=== PATIENT | male | born 1965 | race Caucasian/White ===

== ENCOUNTER → 2018-02-14 | Outpatient (CLI) | payer BC ==
[~2018-02-14] MED LIST: IOPAMIDOL (ISOVUE 370) 100 ML BTL IV ONE
== END ==
LOC: FIMAGING 11:21
PROVIDERS: ATTEND Internal Medicine Hematology & Oncology
DX: C08.9 Malignant neoplasm of major salivary gland, unspecified (principal); C76.0 Malignant neoplasm of head, face and neck; Z45.2 Encounter for adjustment and management of vascular access device
CPT/HCPCS: J1642; Q9967

== ENCOUNTER 2018-04-03 06:28 | Inpatient (IN) | payer BC ==
[2018-04-03] MEDS ORDERED: NS 1,000 ML IV ONE (06:52)
[2018-04-03 07:17] LABS: PLATELET COUNT 70 10^3/uL (150-400)
--- NOTE | 2018-04-03 07:19 | EDPHY ---
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 It has become more frequent and violent since onset and last night he was unable to sleep. He's having some increased dyspnea from baseline. He denies fever or new pain anywhere. He was admitted here 5 weeks ago with neutropenic fever and treated with antibiotics and filgrastim. REVIEW OF SYSTEMS: A comprehensive 10 system review of systems is otherwise negative aside from elements mentioned in the history of present illness. PMH: Metastatic adenoid cystic carcinoma - chemotherapy; 7 head and neck surgeries for cancer Prior medical records reviewed including admission 02/24/18 for neutropenic fever. SOCIAL HISTORY: at bedside. Lives in [place]. Nonsmoker. PHYSICAL EXAM: General:Patient is alert, in no acute distress. SpO2 89% on room air, improved to 99% on 2LPM O2. Head: Resected right facial anatomy. ENT:Eyes are normal to inspection. ENT inspection normal. Neck: Normal inspection. Full range of motion. Respiratory:No respiratory distress. Right-sided inspiratory and expiratory wheezing. Cardiovascular: Regular rate and rhythm. Strong peripheral pulses. Normal cap refill. Abdomen:The abdomen is nontender to palpation. There are no peritoneal signs. Back: Normal to inspection. No tenderness to palpation. Skin: Normal color. No rash. Warm and dry. Extremities: Normal appearance. Full range of motion. Neuro: Oriented x3. Normal motor function. Normal sensory function. ED Course: This is a 52 y/o male with metastatic cystic adenoid carcinoma currently on chemotherapy who presents with a 2-day history of a worsening cough. He was hypoxemic at 89% on room air and has inspiratory and expiratory wheezing on the right side to auscultation. Concern for respiratory infection vs. malignancy progression. Plan for IV, sepsis labs, chest x-ray. 1L IV NS ordered. Labs show patient is anemic with a Hct of 21.8 - 10 points lower than last lab draw 10 days ago. This suggests possible bleeding vs anaplastic anemia. Chest x-ray: no infiltrate, metastatic disease stable. Flu swab is negative. [id number]: Consulted with Dr. Trimble, oncology. He agrees with plan for admission and their service will consult. Spoke with hospitalist service. Dr. Brady accepts admission. Plan for transfusion with 1 unit PRBCs. Chest CTA: no PE, no significant change, narrowing of right bronchus similar to prior imaging. - Data Points Imaging Results: Imaging Impressions Chest X-Ray 04/03/18 06:45 Impression: 1. No pneumonia, edema or effusion. 2. Stable metastatic pulmonary disease. Imaging: I viewed and interpreted images myself Laboratory Results: Laboratory Results 04/03/18 07:00 04/03/18 07:00 04/03/18 04/03/18 04/03/18 07:35 07:00 07:00 WBC RBC Hgb Hct MCV MCH MCHC RDW Plt Count MPV Neut % (Auto) Lymph % (Auto) [place] % (Auto) Eos % (Auto) Baso % (Auto) Nucleat RBC Rel Count Absolute Neuts (auto) Absolute Lymphs (auto) Absolute Monos (auto) Absolute Eos (auto) Absolute Basos (auto) Absolute Nucleated RBC Immature Gran % Seg Neutrophils % Band Neutrophils % Lymphocytes % Monocytes % Eosinophils % Basophils % Metamyelocytes % Myelocytes % Promyelocytes % Blast Cells % Immature Gran # Absolute Seg Neuts Absolute Band Neuts Absolute Lymphocytes Absolute Monocytes Absolute Eosinophils Absolute Basophils Absolute Metamyelocyte Absolute Myelocytes Absolute Promyelocytes Absolute Plasma Cells Nucleated RBCs Absolute Blast Cells Plasma Cells % Toxic Granulation Dohle Bodies Platelet Estimate Microcytic Cells VBG Lactic Acid 2.0 mmol/L mmol/L (0.7-2.1) Sodium 135 mEq/L mEq/L (135-145) Potassium 3.9 mEq/L mEq/L (3.5-5.2) Chloride 100 mEq/L mEq/L (97-110) Carbon Dioxide 26 mEq/l mEq/l (22-31) Anion Gap 9 mEq/L mEq/L (6-14) BUN 24 mg/dL H mg/dL (7-23) Creatinine 1.2 mg/dL mg/dL (0.7-1.3) Estimated GFR > 60 Glucose 132 mg/dL H mg/dL (70-100) Calcium 9.1 mg/dL mg/dL (8.5-10.4) Nasal Influenza A PCR Nasal Influenza B PCR Patient ABO/Rh A POSITIVE Antibody Screen NEGATIVE Crossmatch IS Only See Detail 04/03/18 04/03/18 07:00 06:55 WBC 1.99 10^3/uL L 10^3/uL (3.80-9.50) RBC 2.53 10^6/uL L 10^6/uL (4.40-6.38) Hgb 7.3 g/dL L g/dL (13.7-17.5) Hct 21.8 % L % (40.0-51.0) MCV 86.2 fL fL (81.5-99.8) MCH 28.9 pg pg (27.9-34.1) MCHC 33.5 g/dL g/dL (32.4-36.7) RDW 15.4 % H % (11.5-15.2) Plt Count 70 10^3/uL L 10^3/uL (150-400) MPV 11.6 fL fL (8.7-11.7) Neut % (Auto) Not Reported Lymph % (Auto) Not Reported [place] % (Auto) Not Reported Eos % (Auto) Not Reported Baso % (Auto) Not Reported Nucleat RBC Rel Count Not Reported Absolute Neuts (auto) Not Reported Absolute Lymphs (auto) Not Reported Absolute Monos (auto) Not Reported Absolute Eos (auto) Not Reported Absolute Basos (auto) Not Reported Absolute Nucleated RBC Not Reported Immature Gran % Not Reported Seg Neutrophils % 55.1 % % Band Neutrophils % 2.0 % % Lymphocytes % 24.5 % % Monocytes % 15.3 % % Eosinophils % 0.0 % % Basophils % 3.1 % % Metamyelocytes % 0.0 % % Myelocytes % 0.0 % % Promyelocytes % 0.0 % % Blast Cells % 0.0 % % Immature Gran # Not Reported Absolute Seg Neuts 1.10 10^3/uL L 10^3/uL (1.70-6.50) Absolute Band Neuts 0.04 10^3/uL 10^3/uL (0.00-0.70) Absolute Lymphocytes 0.49 10^3/uL L 10^3/uL (1.00-3.00) Absolute Monocytes 0.30 10^3/uL 10^3/uL (0.30-0.80) Absolute Eosinophils 0.00 10^3/uL L 10^3/uL (0.03-0.40) Absolute Basophils 0.06 10^3/uL 10^3/uL (0.02-0.10) Absolute Metamyelocyte 0.00 10^3/mL 10^3/mL (0.00-0.00) Absolute Myelocytes 0.00 10^3/mL 10^3/mL (0.00-0.00) Absolute Promyelocytes 0.00 10^3/uL 10^3/uL (0.00-0.00) Absolute Plasma Cells 0.00 10^3/uL 10^3/uL (0.00-0.00) Nucleated RBCs 3.1 /100 WBC H /100 WBC (0-0) Absolute Blast Cells 0.00 10^3/uL 10^3/uL (0.00-0.00) Plasma Cells % 0.0 % % Toxic Granulation PRESENT H Dohle Bodies PRESENT H Platelet Estimate DECREASED L (ADEQ) Microcytic Cells 2+ H VBG Lactic Acid Sodium Potassium Chloride Carbon Dioxide Anion Gap BUN Creatinine Estimated GFR Glucose Calcium Nasal Influenza A PCR NEGATIVE FOR FLU A (NEGATIVE) Nasal Influenza B PCR NEGATIVE FOR FLU B (NEGATIVE) Patient ABO/Rh Antibody Screen Crossmatch IS Only Medications Given: Discontinued Medications Sodium Chloride (Ns) 1,000 mls @ 0 mls/hr IV EDNOW ONE; Wide Open PRN Reason: Protocol Stop: 04/03/18 06:53 Last Admin: 04/03/18 07:05 Dose: 1,000 mls General Initial Vital Signs: Initial Vital Signs Temperature (C) 36.5 C 04/03/18 06:32 Heart Rate 83 04/03/18 06:32 Respiratory Rate 18 04/03/18 06:32 Blood Pressure 89/57 L 04/03/18 06:32 O2 Sat (%) 89 L 04/03/18 06:32 O2 Delivery Mode Oxymizer O2 (L/minute) 1.5 Allergies/Adverse Reactions: No Known Allergies Allergy (Verified 04/03/18 06:35) Home Medications: Medication Instructions Recorded Gabapentin [Gabapentin 800 mg] 800 mg PO TID 03/04/16 Levothyroxine [Synthroid 75 mcg 75 mcg PO DAILY06 02/24/18 (*)] Losartan Potassium [Cozaar 25 mg 25 mg PO BID 02/24/18 (*)] Ondansetron HCl [Zofran] 8 mg PO Q8 PRN 02/24/18 Pravastatin Sodium [Pravachol] 10 mg PO HS 02/24/18 Sertraline HCl [Zoloft 50mg (*)] 50 mg PO HS 02/24/18 Sildenafil Citrate 25 - 100 mg PO DAILY PRN 02/24/18 clonazePAM [Clonazepam] 0.5 mg PO BID 02/24/18 metFORMIN HCL [Glucophage 500 mg 500 mg PO DAILY@12 02/24/18 (*)] oxyCODONE HCL [Oxycodone HCl] 5 - 10 mg PO Q4 PRN 02/24/18 Albuterol Sulfate [Proair Hfa] 8.5 gm IH Q4-6PRN PRN #1 [id number].[id number] 02/26/18 OLANZapine [ZyPREXA 2.5 mg (*)] 2.5 mg PO DAILY 04/03/18 Departure - Departure Disposition: [facility] Inpatient Acute Clinical Impression: Hypoxemia, Cough, metastatic cystic adenoid carcinoma Anemia Qualifiers: Anemia type: unspecified type Qualified Code(s): D64.9 - Anemia, unspecified Condition: Fair Report Scribed for: Joshua Barrett Report Scribed by: Kimber Adorno Date of Report: 04/03/18 Time of Report: 07:08 Physician Review and Approval Statement: Portions of this note were transcribed by an ED scribe. I personally performed the history, physical exam, and medical decision making; and confirm the accuracy of the information in the transcribed note.
[2018-04-03] MEDS ORDERED: IOPAMIDOL (ISOVUE 370) 100 ML BTL IV ONE (08:38)
[2018-04-03] MEDS ORDERED: IPRATROPIUM/ALBUTEROL 3 ML DEYVIAL IH PRN (09:24)
[2018-04-03] MEDS ORDERED: ONDANSETRON 4 MG/2 ML VIAL IVP PRN (09:24)
[2018-04-03] MEDS ORDERED: ONDANSETRON DISINTEGRATING 4 MG TAB PO PRN (09:24)
[2018-04-03] MEDS ORDERED: ACETAMINOPHEN 325 MG TAB PO PRN (09:24)
[2018-04-03] MEDS ORDERED: NON-FORMULARY NEW DRUG (Ondansetron Hcl [Zofran] 8 MG) PO PRN (10:22)
[2018-04-03] MEDS ORDERED: oxyCODONE IR 5 MG TAB PO PRN (10:27)
[2018-04-03] MEDS ORDERED: ALBUTEROL 60 PUFFS/8 GM MDI IH PRN (10:30)
[2018-04-03] MEDS ORDERED: OLANZapine 2.5 MG TAB PO SCH (10:30)
[2018-04-03] MEDS ORDERED: LEVOTHYROXINE 75 MCG TAB PO SCH (10:30)
[2018-04-03] MEDS: guaiFENesin/CODEINE PHOS 10 ML UDCUP PO PRN ×2 (10:32→21:04)
[2018-04-03] MEDS: GABAPENTIN 400 MG CAP PO SCH ×3 (10:32→21:03)
[2018-04-03] MEDS: clonazePAM 0.5 MG TAB PO SCH ×2 (10:32→21:03)
[2018-04-03] MEDS ORDERED: OLANZapine 2.5 MG TAB PO PRN (11:43)
[2018-04-03] MEDS: CEFEPIME HCL 2 GM in NS 100 ML IV SCH ×2 (13:26→21:05)
--- NOTE | 2018-04-03 13:50 | PDGENHP ---
History and Physical - Chief Complaint Cough, SOB - History of Present Illness Yariel Mcdonald is a 52 yo M with a PMHx of Metastatic adenoid cystic carcinoma with most recent chemo 2 weeks ago who presents to [facility] for 2 day hx of cough and SOB. He reports that he started having non-productive cough 2 days ago. He denies associated symptoms of sore throat, chest pain, fever/chills, diarrhea /constipation, n/v, rash, dysuria, headache. He reports cough has been getting worse despite taking Robitussin at home. Of note, he was admitted for neutropenic fever, was dx with bacterial bronchitis at that time and was given course of Levaquin. He follows with Dr. Buck as his primary oncologist. History Information - Allergies/Home Medication List Allergies/Adverse Reactions: No Known Allergies Allergy (Verified 04/03/18 06:35) Home Medications: Gabapentin [Gabapentin 800 mg] 800 mg PO TID 03/04/16 [Last Taken Unknown] Levothyroxine [Synthroid 75 mcg (*)] 75 mcg PO DAILY06 02/24/18 [Last Taken Unknown] Losartan Potassium [Cozaar 25 mg (*)] 25 mg PO BID 02/24/18 [Last Taken Unknown] Ondansetron HCl [Zofran] 8 mg PO Q8 PRN 02/24/18 [Last Taken Unknown] Pravastatin Sodium [Pravachol] 10 mg PO HS 02/24/18 [Last Taken Unknown] Sertraline HCl [Zoloft 50mg (*)] 50 mg PO HS 02/24/18 [Last Taken Unknown] Sildenafil Citrate 25 - 100 mg PO DAILY PRN 02/24/18 [Last Taken Unknown] clonazePAM [Clonazepam] 0.5 mg PO BID 02/24/18 [Last Taken Unknown] metFORMIN HCL [Glucophage 500 mg (*)] 500 mg PO DAILY@12 02/24/18 [Last Taken Unknown] oxyCODONE HCL [Oxycodone HCl] 5 - 10 mg PO Q4 PRN 02/24/18 [Last Taken Unknown] OLANZapine [ZyPREXA 2.5 mg (*)] 2.5 mg PO DAILY 04/03/18 [Last Taken Unknown] I have personally reviewed and updated: family history, medical history, social history, surgical history - Past Medical History Additional medical history: Metastatic adenoid cystic carcinoma - Surgical History Additional surgical history: Multiple facial surgeries for cancer - Family History Positive for: non-pertinent - Social History Smoking Status: Never smoked Review of Systems Review of Systems: ROS: 10pt was reviewed & negative except for what was stated in HPI & below Physical Exam Physical Exam: Temp Pulse Resp BP Pulse Ox 36.9 C 106 H 16 156/88 H 91 L 04/03/18 13:10 04/03/18 13:10 04/03/18 13:10 04/03/18 13:10 04/03/18 13:10 O2 (L/minute) 2 Constitutional: chronically ill appearing Eyes: PERRL Ears, Nose, Mouth, Throat: moist mucous membranes, other (S/p facial surgeries with large portion removed, c/d/i) Cardiovascular: regular rate and rhythym Respiratory: no respiratory distress Gastrointestinal: normoactive bowel sounds Skin: warm Musculoskeletal: full muscle strength Neurologic: AAOx3 Psychiatric: interacting appropriately Lab Data & Imaging Review 04/03/18 07:00 04/03/18 07:00 WBC 1.99 10^3/uL (3.80-9.50) L 04/03/18 07:00 RBC 2.53 10^6/uL (4.40-6.38) L 04/03/18 07:00 Hgb 7.3 g/dL (13.7-17.5) L 04/03/18 07:00 Hct 21.8 % (40.0-51.0) L 04/03/18 07:00 MCV 86.2 fL (81.5-99.8) 04/03/18 07:00 MCH 28.9 pg (27.9-34.1) 04/03/18 07:00 MCHC 33.5 g/dL (32.4-36.7) 04/03/18 07:00 RDW 15.4 % (11.5-15.2) H 04/03/18 07:00 Plt Count 70 10^3/uL (150-400) L 04/03/18 07:00 MPV 11.6 fL (8.7-11.7) 04/03/18 07:00 Neut % (Auto) Not Reported 04/03/18 07:00 Lymph % (Auto) Not Reported 04/03/18 07:00 [place] % (Auto) Not Reported 04/03/18 07:00 Eos % (Auto) Not Reported 04/03/18 07:00 Baso % (Auto) Not Reported 04/03/18 07:00 Nucleat RBC Rel Count Not Reported 04/03/18 07:00 Absolute Neuts (auto) Not Reported 04/03/18 07:00 Absolute Lymphs (auto) Not Reported 04/03/18 07:00 Absolute Monos (auto) Not Reported 04/03/18 07:00 Absolute Eos (auto) Not Reported 04/03/18 07:00 Absolute Basos (auto) Not Reported 04/03/18 07:00 Absolute Nucleated RBC Not Reported 04/03/18 07:00 Immature Gran % Not Reported 04/03/18 07:00 Seg Neutrophils % 55.1 % 04/03/18 07:00 Band Neutrophils % 2.0 % 04/03/18 07:00 Lymphocytes % 24.5 % 04/03/18 07:00 Monocytes % 15.3 % 04/03/18 07:00 Eosinophils % 0.0 % 04/03/18 07:00 Basophils % 3.1 % 04/03/18 07:00 Metamyelocytes % 0.0 % 04/03/18 07:00 Myelocytes % 0.0 % 04/03/18 07:00 Promyelocytes % 0.0 % 04/03/18 07:00 Blast Cells % 0.0 % 04/03/18 07:00 Immature Gran # Not Reported 04/03/18 07:00 Absolute Seg Neuts 1.10 10^3/uL (1.70-6.50) L 04/03/18 07:00 Absolute Band Neuts 0.04 10^3/uL (0.00-0.70) 04/03/18 07:00 Absolute Lymphocytes 0.49 10^3/uL (1.00-3.00) L 04/03/18 07:00 Absolute Monocytes 0.30 10^3/uL (0.30-0.80) 04/03/18 07:00 Absolute Eosinophils 0.00 10^3/uL (0.03-0.40) L 04/03/18 07:00 Absolute Basophils 0.06 10^3/uL (0.02-0.10) 04/03/18 07:00 Absolute Metamyelocyte 0.00 10^3/mL (0.00-0.00) 04/03/18 07:00 Absolute Myelocytes 0.00 10^3/mL (0.00-0.00) 04/03/18 07:00 Absolute Promyelocytes 0.00 10^3/uL (0.00-0.00) 04/03/18 07:00 Absolute Plasma Cells 0.00 10^3/uL (0.00-0.00) 04/03/18 07:00 Nucleated RBCs 3.1 /100 WBC (0-0) H 04/03/18 07:00 Absolute Blast Cells 0.00 10^3/uL (0.00-0.00) 04/03/18 07:00 Plasma Cells % 0.0 % 04/03/18 07:00 Toxic Granulation PRESENT H 04/03/18 07:00 Dohle Bodies PRESENT H 04/03/18 07:00 Platelet Estimate DECREASED (ADEQ) L 04/03/18 07:00 Microcytic Cells 2+ H 04/03/18 07:00 VBG Lactic Acid 2.0 mmol/L (0.7-2.1) 04/03/18 07:00 Sodium 135 mEq/L (135-145) 04/03/18 07:00 Potassium 3.9 mEq/L (3.5-5.2) 04/03/18 07:00 Chloride 100 mEq/L (97-110) 04/03/18 07:00 Carbon Dioxide 26 mEq/l (22-31) 04/03/18 07:00 Anion Gap 9 mEq/L (6-14) 04/03/18 07:00 BUN 24 mg/dL (7-23) H 04/03/18 07:00 Creatinine 1.2 mg/dL (0.7-1.3) 04/03/18 07:00 Estimated GFR > 60 04/03/18 07:00 Glucose 132 mg/dL (70-100) H 04/03/18 07:00 Calcium 9.1 mg/dL (8.5-10.4) 04/03/18 07:00 Nasal Influenza A PCR NEGATIVE FOR FLU A (NEGATIVE) 04/03/18 06:55 Nasal Influenza B PCR NEGATIVE FOR FLU B (NEGATIVE) 04/03/18 06:55 Patient ABO/Rh A POSITIVE 04/03/18 07:35 Antibody Screen NEGATIVE 04/03/18 07:35 Crossmatch IS Only See Detail 04/03/18 07:35 Assessment & Plan Assessment: Cough (Acute) - 2 days of non-productive cough, no associated f/c - Afebrile on admission with neutropenia, ANC 1,084 - CXR showing stable metastatic pulmonary disease, no acute etiology - CTA performed on admission shows no evidence of PE, stable metastatic disease , severe narrowing of R main bronchus and origin RUL due to R hilar mass, unchanged, RLL segmental mucous plugging peripheral to R hilar mass is worse, RUL postobstructive atelectasis and consolidation is unchanged, no new airspace consolidation or edema - Flu negative on admission - Respiratory PCR negative on admission - No clear etiology for cough at this time, possible post obstructive PNA on CTA as above - Discussed with patient and about conservative management vs. initiating empiric abx in setting of neutropenia, started on Levaquin 750 mg qd, switched to Cefepime per Oncology - Blood cultures x2 collected, f/u results Anemia/Neutropenia/Pancytopenia (Acute) - Hgb 7.3 on admission, decreased from baseline, WBC as above, Platelets 70 - In setting of recent chemotherapy - 2 units PRBCs ordered in ED - Will continue to monitor, transfuse H/H <7/20 Metastatic Adenoid Cystic Carcinoma - Follows with Dr. Buck, reprts last chemo session 2 weeks ago - Oncology, Dr. Trimble, consulted by ED, will f/u recommendations FEN: IVF, Regular DVT PPx; Lovenox Code: DNR Dispo: Admit to Observation
--- NOTE | 2018-04-03 13:58 | GCON ---
ONCOLOGY CONSULTATION NOTE DATE OF CONSULTATION: 04/03/2018 HISTORY OF PRESENT ILLNESS: The patient is a 52-year-old gentleman followed by my partner, Dr. Letha Buck. He has a very complicated medical history. The patient was originally diagnosed with an a denoid cystic carcinoma in 2009. He underwent a total parotidectomy at that time. He received posto p radiation for positive margins. He, unfortunately, developed a local recurrence in the fall. The patient underwent a complex resection. He had positive margins. He was re-irradiated. He h as, unfortunately, since developed metastatic disease. He was treated briefly on an [facility] [place] with Nivolumab. More recently, he has been receiving palliative cisplatin, doxorubicin, and cycl ophosphamide. He received his 4th cycle of this regimen on March 24. He reports approximately 24 hours of increasing dyspnea and a nonproductive cough. He denies fevers or chills. He reports increasing weakness. He denies abdominal pain, nausea, vomiting, or diarrhea. He was brought to the emergency department today. A CT angiogram of the chest done in the ER revea led no evidence of pulmonary embolism. His known metastatic pulmonary nodules are stable. He appear s to have a postobstructive process in the right lower lobe. He has been started on levofloxacin. Dimitri maya was noted to have chemotherapy-induced anemia and has received 1 unit of packed red cells. Overall , he feels somewhat better. When seen, his is at the bedside. PAST MEDICAL HISTORY: Essentially unremarkable other than his diagnosis of head and neck carcinoma. SOCIAL HISTORY: The patient lives locally. He is to [facility]. He has 2 grown children. 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 REVIEW OF SYSTEMS: As outlined above. Remainder of 10-point review of systems otherwise negative. ALLERGIES: Patient has no known drug allergies. PHYSICAL EXAM: GENERAL: Patient is resting comfortably in bed. He is using supplemental oxygen. Dimitri maya is in no acute distress. HEENT: He has had extensive surgery on the right side of his face, inclu ding removal of the right eye and orbit. There is no grossly visible disease involving the face. HE ART: Regular without murmur. LUNGS: Clear bilaterally without wheeze, rhonchi, or crackles. No fl ank tenderness. ABDOMEN: Soft, nontender, nondistended with no organomegaly or mass. EXTREMITIES: No extremity swelling or edema. SKIN: No visible skin rash. MENTAL STATUS: Patient is alert, navneet ented, and appropriate. CT RESULTS: As per HPI. LABORATORY STUDIES: White count 1.99, absolute neutrophil count is 1110, hemoglobin 7.3, hematocrit 21.8, platelet count is 70,000. Sodium 135, potassium 3.9, chloride 100, bicarb 26, BUN 24, creatini ne 1.2, calcium 9.1. IMPRESSION: 1. Metastatic adenoid cystic carcinoma with multiple pulmonary metastases. 2. Chemotherapy-induced pancytopenia. 3. Cough with evidence of postobstructive pneumonia on CT scan. 4. Symptomatic anemia. The patient is a pleasant 52-year-old gentleman with metastatic adenoid cystic carcinoma who recently received his 4th cycle of palliative cisplatin, doxorubicin, and cyclophosphamide. He is admitted n with what appears to be a postobstructive pneumonia. Given that he is borderline neutropenic, I will alter his antibiotic coverage to cefepime. He has re ceived 1 unit packed red cell transfusion, which will hopefully help with his hypoxemia. He is borderline neutropenic. I do not believe he requires growth factors at this time. Blood cultu res will be followed. The patient will be supported during his hospital stay and will be hydrated wi th intravenous fluid. I expect a fairly rapid improvement in his symptoms with antibiotic therapy. I will notify Dr. Buck of his admission. Our service will continue to follow him during this hospital stay. Care plan was discussed with the patient and his . Their questions were answered. Total time for today's visit was approximately 40 minutes, of which greater than 50% was spent in cou nseling, care coordination. /[id number]/MODL
--- NOTE | 2018-04-03 15:11 | ASMTCMCOM ---
CM Note CM Note Notes: Chart reviewed. 52 year old male undergoing treatment for metastatic cancer admitted via ED from home with c/o 2 days of worsening cough. Therapies ordered. CM to follow for needs. Plan: TBD likely independent when medically stable for discharge. Date Signed: 04/03/2018 03:11 PM Electronically Signed By:Lulu Marquez RN
[2018-04-03] MEDS: SERTRALINE HCL 50 MG TAB PO SCH (21:03)
[2018-04-03] MEDS: oxyCODONE IR 5 MG TAB PO PRN (21:04)
[2018-04-03] MEDS: PRAVASTATIN SODIUM 10 MG TAB PO SCH (21:04)
[2018-04-04 05:26] LABS: PLATELET COUNT 66 10^3/uL (150-400)
[2018-04-04] MEDS: guaiFENesin/CODEINE PHOS 10 ML UDCUP PO PRN ×5 (06:21→22:16)
[2018-04-04] MEDS: clonazePAM 0.5 MG TAB PO SCH ×2 (09:38→21:33)
[2018-04-04] MEDS: CEFEPIME HCL 2 GM in NS 100 ML IV SCH ×2 (09:39→17:13)
[2018-04-04] MEDS: GABAPENTIN 400 MG CAP PO SCH ×3 (09:39→21:33)
[2018-04-04] MEDS: ENOXAPARIN 40 MG/0.4 ML SYR SC SCH (09:47)
--- NOTE | 2018-04-04 12:58 | HOSPPROG ---
Hospitalist Progress Note Assessment/Plan: Cough (Acute) - 2 days of non-productive cough, no associated f/c - Afebrile on admission with neutropenia, ANC 1,084, had fever overnight 39.4, ANC This AM 3,381 - CXR showing stable metastatic pulmonary disease, no acute etiology - CTA performed on admission showed no evidence of PE, stable metastatic disease , severe narrowing of R main bronchus and origin RUL due to R hilar mass, unchanged, RLL segmental mucous plugging peripheral to R hilar mass is worse, RUL postobstructive atelectasis and consolidation is unchanged, no new airspace consolidation or edema - Flu negative on admission, Respiratory PCR negative on admission - No clear etiology for cough at this time, possible post obstructive PNA on CTA as above - Discussed with patient and about conservative management vs. initiating empiric abx in setting of neutropenia, started on Levaquin 750 mg qd, switched to Cefepime per Oncology - Will plan to continue IV Abx overnight, if no further fevers and negative blood cultures will switch to PO abx - Blood cultures x2 collected, f/u results Anemia/Neutropenia/Pancytopenia (Acute) - Hgb 7.3 on admission, decreased from baseline, WBC as above, Platelets 70 - In setting of recent chemotherapy - S/p 2 units PRBCs, Hgb 8.3 this AM - Will continue to monitor, transfuse H/H <7/20 Metastatic Adenoid Cystic Carcinoma - Follows with Dr. Buck, reprts last chemo session 2 weeks ago - Oncology following, discussed case with Dr. Escobedo this AM, appreciate recommendations FEN: IVF, Regular DVT PPx; Lovenox Code: DNR Dispo: Pending clinical course Subjective: Patient reports fever yesterday evening, improved cough this AM Objective: Vital Signs Temp Pulse Resp BP Pulse Ox 36.9 C 88 18 112/60 90 L 04/04/18 11:39 04/04/18 11:39 04/04/18 11:39 04/04/18 11:39 04/04/18 11:39 Laboratory Results 04/04/18 04:30 04/04/18 04:30 04/03/18 04/04/18 04/05/18 05:59 05:59 05:59 Intake Total 2250 Output Total 950 275 Balance 1300 -275 - Physical Exam Constitutional: chronically ill appearing Eyes: PERRL Ears, Nose, Mouth, Throat: moist mucous membranes Cardiovascular: regular rate and rhythym Respiratory: reduced air movement (R side ) Gastrointestinal: soft, non-tender abdomen Musculoskeletal: full muscle strength Neurologic: AAOx3 Psychiatric: interacting appropriately ICD10 Worksheet Patient Problems: Problems Problem Status Onset Anemia Acute Cough Acute Hypoxemia Acute Fever Acute Neutropenia Acute
[2018-04-04] MEDS: oxyCODONE IR 5 MG TAB PO PRN ×2 (14:43→21:33)
--- NOTE | 2018-04-04 16:41 | PDMN ---
Medical Necessity Medical necessity: Change to inpt as of 04/04/18 @ 16:24. Pt meets inpt criteria per MD order and Medical Oncology GRG. 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 Upgraded to inpt today for ongoing eval/ management of above, fever last night of 102.9, still requiring 2-3L O2, further IV ABX's. Est LOS>2MN for management of above.
--- NOTE | 2018-04-04 19:38 | SOAPPROG ---
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 #Sepsis Unknown etiology at this point, his CT shows what seems to be chronic changes. Acuity of symptom presentation and perhaps radiographic resolution argues for likely aspirational event (uriel in light of his altered head and neck anatomy). Another consideration would be bacteremia. -Agree with cefepime for now -Would wait for b/c to be negative 48 hours then could consider de-escalation perhaps to augmentin for aspiration pneumonitis #Pancytopenia - secondary to chemotherapy -no longer neutropenic, no indication for growth factor -goal plts >20,000, hbg >7 g/dl #Metastatic adenoid cystic carcinoma Stable pulm disease from 02/2018. Currently on his fourth cycle of doxorubicin/ cisplatin/cytoxan. -Follow-up as outpatient with Dr. Dickerson Subjective: patient reports feeling well. he has had improved breathing. continued non productive cough. Fever last night. Objective: Vital Signs Temp Pulse Resp BP Pulse Ox 37.6 C 81 18 96/63 L 96 04/04/18 19:28 04/04/18 19:28 04/04/18 19:28 04/04/18 19:28 04/04/18 19:28 Physical Exam General: non toxic appearing, no distress HEENT: right sided facial/skull defect with adherent scab, unable to open mouth completely, some drooling noted, left pupil is round and reactive to light, mild pallor Neck:supple CV: RRR without rubs thrills or gallops Chest: CTA with decreased lung sound at the right mid to base Extremities; warm and well perfused, no edema Patient ABO/Rh A POSITIVE 04/03/18 07:35 Hct 24.8 % (40.0-51.0) L 04/04/18 04:30 ICD10 Worksheet Patient Problems: Problems Problem Status Onset Anemia Acute Cough Acute Hypoxemia Acute Fever Acute Neutropenia Acute
[2018-04-04] MEDS: SERTRALINE HCL 50 MG TAB PO SCH (21:33)
[2018-04-04] MEDS: PRAVASTATIN SODIUM 10 MG TAB PO SCH (21:33)
[2018-04-05] MEDS: CEFEPIME HCL 2 GM in NS 100 ML IV SCH ×2 (00:50→08:45)
[2018-04-05] MEDS: guaiFENesin/CODEINE PHOS 10 ML UDCUP PO PRN ×3 (03:40→12:59)
[2018-04-05 05:02] LABS: PLATELET COUNT 89 10^3/uL (150-400)
[2018-04-05 08:02] VITALS: BP 104/62
[2018-04-05] MEDS: ENOXAPARIN 40 MG/0.4 ML SYR SC SCH (08:08)
[2018-04-05] MEDS: clonazePAM 0.5 MG TAB PO SCH (08:08)
[2018-04-05] MEDS: GABAPENTIN 400 MG CAP PO SCH (08:08)
[2018-04-05] MEDS ORDERED: BENZONATATE 100 MG CAP PO PRN (08:19)
[2018-04-05] MEDS ORDERED: guaiFENesin/CODEINE PHOS 10 ML UDCUP PO PRN (09:40)
--- NOTE | 2018-04-05 10:14 | PDHOMEO2F ---
Home Oxygen Face to Face Home Orders: I certify that a physician or a nurse practitioner or physician's veterinary technician assistant has had a [id number] encounter with this patient on the date of this order due to the diagnosis listed, which relates to the primary reason the patient requires home oxygen. Alternative treatments have been tried, or considered, and deemed ineffective. It is anticipated that supplemental oxygen will result in improvement with treatment. Home oxygen qualifying diagnosis: Pneumonia, Airway obstruction SpO2 on room air (%): 82 Frequency of home oxygen needed: continuous Home oxygen liters per minute: 2 Home oxygen delivery device: nasal cannula Concentrator: Yes E-tanks for mobility and back up: Yes If ordering portable O2, is the patient mobile in the home?: Yes I certify that, based on these findings, the home oxygen is medically necessary for this patient for the following length of time. Length of time home oxygen needed: 99 years
--- NOTE | 2018-04-05 13:07 | PDDCSUM ---
Discharge Summary Discharge Summary: Date of Admission: 04/03/2018 Date of Discharge: 04/05/2018 Consults: Oncology Followup: PCP, Oncology Hospital Course Problem List: Cough (Acute) - 2 days of non-productive cough, no associated f/c - Afebrile on admission with neutropenia, ANC 1,084, had fever overnight 39.4 on 04/03 - CXR showing stable metastatic pulmonary disease, no acute etiology - CTA performed on admission showed no evidence of PE, stable metastatic disease , severe narrowing of R main bronchus and origin RUL due to R hilar mass, unchanged, RLL segmental mucous plugging peripheral to R hilar mass is worse, RUL postobstructive atelectasis and consolidation is unchanged, no new airspace consolidation or edema - Flu negative on admission, Respiratory PCR negative on admission - No clear etiology for cough at this time, possible mucus plugging/post obstructive PNA on CTA as above - Started on IV Cefepime, afebrile for past 24 hours, will transition to PO Levaquin to complete 7 day course - Blood cultures x2 collected, NGTD Anemia/Neutropenia/Pancytopenia (Acute) - Hgb 7.3 on admission, decreased from baseline, WBC as above, Platelets 70 - In setting of recent chemotherapy - S/p 2 units PRBCs, Hgb 8.6 this AM - Will continue to monitor, transfuse H/H <7/20 Metastatic Adenoid Cystic Carcinoma - Follows with Dr. Buck, reprts last chemo session 2 weeks ago - Oncology following, discussed case with Dr. Escobedo this AM, appreciate recommendations Time spent on discharge was >35 minutes with >50% of time spent on patient education and counseling.
== END 2018-04-05 13:30 | disposition home or self-care (01) | DRG 204 ==
LOC: F1N 10:06 → OBSVTOIN 04-04 16:24
PROVIDERS: ADMIT Internal Medicine; ATTEND Internal Medicine
PROC: 30233N1 Transfusion of Nonautologous Red Blood Cells into Peripheral Vein, Percutaneous Approach (ICD-10-PCS; principal; 2018-04-03)
DX: R05 Cough (principal); D61.810 Antineoplastic chemotherapy induced pancytopenia; C79.89 Secondary malignant neoplasm of other specified sites; C78.00 Secondary malignant neoplasm of unspecified lung; J98.11 Atelectasis; E86.9 Volume depletion, unspecified; D64.9 Anemia, unspecified; D70.9 Neutropenia, unspecified
CPT/HCPCS: G0378; J0692; J1642; J1650; J1956; P9016; P9040; Q9967

== ENCOUNTER 2018-05-01 05:04 | Inpatient (IN) | payer BC ==
[2018-05-01] MEDS ORDERED: NS 1,000 ML IV ONE (05:11)
[2018-05-01] MEDS ORDERED: CEFEPIME HCL 2 GM in NS 100 ML IV ONE (05:15)
--- NOTE | 2018-05-01 05:18 | EDPHY ---
H & P Stated Complaint: weakness Time Seen by Provider: 05/01/18 05:09 HPI/ROS: HPI The patient presents with weakness which has been present for the last 1 day. This is gotten progressively worse. His Sarah wanted to take him to be evaluated yesterday, however the patient wanted to stay at home. This morning, he was unable to get out of bed he felt so weak and dizzy so she called 911. She reports over the last 2 days he has had less of an appetite and has not been drinking much fluid. He has not had any vomiting. They have not noticed a fever. He was on oxygen until about 1 and half weeks ago recovering from pneumonia. His oxygen saturations range from about 85-90 without it, however today his oxygen saturations dropped to the 70s. For the last 4 days he has had a dry cough without any rhinorrhea or sore throat. He has not had any chest pain. According to paramedics his temperature was 101 F, with hypotension, tachycardia, sats in the 70s. He was admitted to the hospital over the new year and had a postobstructive pneumonia with hypoxia but has been off oxygen over the last 1 week. He had neutropenia at that time as well. REVIEW OF SYSTEMS 10 systems were reviewed and negative with the exception of the elements mentioned in the history of present illness. PMHx: Metastatic adenoid cystic carcinoma with multiple facial operations, recent CT scan of chest shows metastatic disease to lungs, currently on chemotherapy, previously treated with radiation Soc Hx: Here with his , lives in [place] PHYSICAL General Appearance: Alert, no distress Eyes: Pupils equal and round no pallor or injection ENT, Mouth: Extensive right-sided facial surgery with scars, Mucous membranes dry Respiratory: There are no retractions, coarse breath sounds throughout all lung chavez Cardiovascular: Tachycardic rate and regular rhythm Gastrointestinal: Abdomen is soft and non-tender, no masses, bowel sounds normal Neurological: A&O, moves all extremities Skin: Warm and dry, no rashes Musculoskeletal: Neck is supple non tender Extremities: symmetrical, full range of motion Psychiatric: Patient is oriented X 3, there is no agitation Source: Patient, Family, Old records Exam Limitations: No limitations - Medical/Surgical History Hx Asthma: No Hx Chronic Respiratory Disease: Yes Hx Diabetes: No Hx Cardiac Disease: No Hx Renal Disease: No Hx Cirrhosis: No Hx Alcoholism: No Hx HIV/AIDS: No Hx Splenectomy or Spleen Trauma: No Other PMH: Lung Cancer (Tumor right side)Metastatic adenoid cystic carcinoma. - Social History Smoking Status: Never smoked Constitutional: Initial Vital Signs Temperature (C) 36.9 C 05/01/18 05:10 Heart Rate 97 05/01/18 05:10 Respiratory Rate 20 05/01/18 05:10 Blood Pressure 74/50 L 05/01/18 05:10 O2 Sat (%) 76 L 05/01/18 05:10 O2 Delivery Mode Oxymask O2 (L/minute) 3 Allergies/Adverse Reactions: No Known Allergies Allergy (Verified 05/01/18 05:35) Home Medications: Medication Instructions Recorded Gabapentin [Gabapentin 800 mg] 800 mg PO TID 03/04/16 Levothyroxine [Synthroid 75 mcg 75 mcg PO DAILY06 02/24/18 (*)] Losartan Potassium [Cozaar 25 mg 25 mg PO BID 02/24/18 (*)] Ondansetron HCl [Zofran] 8 mg PO Q8 PRN 02/24/18 Pravastatin Sodium [Pravachol] 10 mg PO HS 02/24/18 Sertraline HCl [Zoloft 50mg (*)] 50 mg PO HS 02/24/18 Sildenafil Citrate 25 - 100 mg PO DAILY PRN 02/24/18 clonazePAM [Clonazepam] 0.5 mg PO BID 02/24/18 metFORMIN HCL [Glucophage 500 mg 500 mg PO DAILY@12 02/24/18 (*)] Albuterol Sulfate [Proair Hfa] 8.5 gm IH Q4-6PRN PRN #1 hfa.aer.[id number] 02/26/18 OLANZapine [ZyPREXA 2.5 mg (*)] 2.5 mg PO DAILY 04/03/18 Benzonatate [Tessalon Pearles] 200 mg PO TID PRN #40 cap 04/05/18 levOFLOXACIN [levAQUIN (*)] 750 mg PO DAILY AT 10AM #4 tab 04/05/18 oxyCODONE HCL [Oxycodone HCl] 5 - 10 mg PO Q4 PRN #30 capsule 04/05/18 Codeine Phosphate/Guaifenesin 5 ml PO Q4HRS PRN 05/01/18 [Codeine-Guaifen 10-100 mg/5 ml] Medical Decision Making - Diagnostics Imaging Results: Chest x-ray two views shows metastatic disease with what appears to be a right- sided middle lobe infiltrate, interpreted by me, radiology interpretation is pending. Imaging: I viewed and interpreted images myself Differential Diagnosis: 52-year-old man with history of metastatic adenoid cystic carcinoma currently on chemotherapy, last done on April 21, presents now with weakness, shortness of breath, cough, fever. Here initial vital signs are concerning for sepsis with fever, hypotension, tachycardia, hypoxia. I suspect he could have a recurrent pneumonia related to underlying metastatic disease. I am concerned that he is neutropenic given that he is 10 days status post chemotherapy. In the emergency department, I met the paramedics at the bedside to obtain their report. Patient was immediately started on IV fluids. Sepsis workup initiated. Patient received 3 L of IV fluid, cefepime, vancomycin. Chest x-ray demonstrated new infiltrate which I suspect is the cause of his sepsis. Labs revealed absolute neutrophil count of about 600. His hemoglobin is low at 6.4. I have ordered a transfusion of 1 unit of PRBCs. He has elevated BUN and creatinine suggestive of pre renal azotemia. I consulted with the oncologist on-call for Dr. Cielo Menendez, we discussed the patient's case and she can see him later today. I consulted with Dr. Beltran who will admit the patient to the hospital. Patient is DNR and would generally like to avoid intensive care. After 30 cc/ kilos fluid bolus, map is about 65. Lactate is normal. He does have a port in place and could receive a pressor through this. I will not place a central line at this time. We will place him in the Step-Down Unit. Critical Care Time: CRITICAL CARE Critical care time spent by me, Dr. Rueda, exclusively with this patient was 60 minutes, exclusive of PA time and exclusive of procedures. The organ system at risk was cardiac and I gave IV fluids, antibiotics, transfer the patient to the step-down unit to prevent worsening of the patients condition. - Data Points Laboratory Results: Laboratory Results 05/01/18 05:22 05/01/18 05:22 05/01/18 05:50 Patient ABO/Rh A POSITIVE Antibody Screen NEGATIVE Crossmatch IS Only See Detail Medications Given: Albuterol (Proventil Neb) 3 ml IH Q2HRS PRN PRN Reason: Short of Breath/Dyspnea Stop: 10/28/18 07:16 Last Admin: 05/01/18 13:32 Dose: 3 ml Benzonatate (Tessalon Pearles) 100 mg PO Q6 PRN PRN Reason: COGHING Stop: 10/28/18 11:17 Last Admin: 05/02/18 00:45 Dose: 100 mg Clonazepam (Klonopin) 0.5 mg PO BID DARCY Stop: 10/28/18 20:59 Last Admin: 05/01/18 20:42 Dose: 0.5 mg Gabapentin (Neurontin) 800 mg PO TID DARCY Stop: 10/28/18 15:59 Last Admin: 05/01/18 20:42 Dose: 800 mg Guaifenesin/Codeine Phosphate (Robitussin Ac) 10 ml PO Q4HRS PRN PRN Reason: Cough, Moderate Stop: 10/28/18 12:14 Last Admin: 05/02/18 03:00 Dose: 10 ml Sodium Chloride (Ns) 1,000 mls @ 125 mls/hr IV CONT DARCY Stop: 10/28/18 07:29 Last Admin: 05/02/18 05:08 Dose: 1,000 mls Cefepime HCl 2 gm/ Sodium (Chloride) 100 mls @ 200 mls/hr IV Q8HRS DARCY PRN Reason: Protocol Stop: 05/31/18 13:59 Last Admin: 05/02/18 05:08 Dose: 100 mls Vancomycin HCl 1 gm/ Sodium (Chloride) 250 mls @ 250 mls/hr IV Q12H DARCY Stop: 05/31/18 19:59 Last Admin: 05/01/18 19:47 Dose: 250 mls Norepinephrine 4 mg/ Sodium (Chloride) 504 mls @ 0 mls/hr IV CONT DARCY; Per Protocol PRN Reason: Protocol Stop: 10/28/18 09:29 Last Admin: 05/02/18 05:08 Dose: 504 mls Levothyroxine Sodium (Synthroid) 75 mcg PO DAILY06 [facility] Stop: 10/29/18 05:59 Last Admin: 05/02/18 05:08 Dose: 75 mcg Ondansetron HCl (Zofran) 4 mg IVP Q4HRS PRN PRN Reason: Nausea/Vomiting, Can't Take PO Stop: 10/28/18 07:06 Last Admin: 05/01/18 21:13 Dose: 4 mg Ondansetron HCl (Zofran Odt) 4 mg PO Q4HRS PRN PRN Reason: Nausea/Vomiting, Use 1st Stop: 10/28/18 07:06 Last Admin: 05/01/18 21:13 Dose: 4 mg Oxycodone HCl (Oxycodone Ir) 5 - 10 mg PO Q4 PRN PRN Reason: Pain, Severe Able to Take PO Stop: 05/11/18 20:30 Last Admin: 05/02/18 05:08 Dose: 10 mg Pravastatin Sodium (Pravachol) 10 mg PO HS [facility] Stop: 10/28/18 20:59 Last Admin: 05/01/18 20:42 Dose: 10 mg Sertraline HCl (Zoloft) 50 mg PO [facility] Stop: 10/28/18 20:59 Last Admin: 05/01/18 20:42 Dose: 50 mg Discontinued Medications Acetaminophen (Tylenol) 1,000 mg PO EDNOW ONE Stop: 05/01/18 05:43 Last Admin: 05/01/18 06:02 Dose: Not Given Guaifenesin/Codeine Phosphate (Robitussin Ac) 5 ml PO Q4HRS PRN PRN Reason: Cough, Moderate Stop: 10/28/18 12:14 Last Admin: 05/01/18 12:21 Dose: 5 ml Sodium Chloride (Ns) 1,000 mls @ 0 mls/hr IV EDNOW ONE; Wide Open PRN Reason: Protocol Stop: 05/01/18 05:12 Last Admin: 05/01/18 05:16 Dose: 1,000 mls Cefepime HCl 2 gm/ Sodium (Chloride) 100 mls @ 200 mls/hr IV EDNOW ONE PRN Reason: Protocol Stop: 05/01/18 05:44 Last Admin: 05/01/18 05:45 Dose: 100 mls Sodium Chloride (Ns) 3,000 mls @ 6,000 mls/hr 30 ml/kg infuse over 30 min ( 3000 ml) IV EDNOW ONE PRN Reason: Protocol Stop: 05/01/18 06:07 Last Admin: 05/01/18 05:45 Dose: 3,000 mls Vancomycin HCl 2 gm/ Sodium (Chloride) 500 mls @ 250 mls/hr IV EDNOW ONE PRN Reason: Protocol Stop: 05/01/18 08:36 Last Admin: 05/01/18 07:06 Dose: 500 mls Ondansetron HCl (Zofran) 4 mg IVP EDNOW ONE Stop: 05/01/18 07:16 Last Admin: 05/01/18 07:19 Dose: 4 mg Ondansetron HCl (Zofran) 4 mg IVP EDNOW ONE Stop: 05/01/18 07:19 Last Admin: 05/01/18 07:20 Dose: Not Given Departure - Departure Disposition: [facility] Inpatient Acute Clinical Impression: Neutropenic fever, Hypoxia, Adenoid cystic carcinoma, Sepsis Pneumonia Qualifiers: Pneumonia type: due to unspecified organism Laterality: right Lung location: middle lobe of lung Qualified Code(s): J18.1 - Lobar pneumonia, unspecified organism Anemia Qualifiers: Anemia type: other cause Other causes of anemia: other cause, not classified Qualified Code(s): D64.89 - Other specified anemias Condition: Critical
[2018-05-01] MEDS ORDERED: NS 3,000 ML IV ONE (05:38)
[2018-05-01] MEDS ORDERED: ACETAMINOPHEN 500 MG TAB PO ONE (05:42)
[2018-05-01 05:45] LABS: PLATELET COUNT 36 10^3/uL (150-400)
[2018-05-01] MEDS ORDERED: VANCOMYCIN 2 GM in NS 500 ML IV ONE (06:37)
[2018-05-01] MEDS ORDERED: ONDANSETRON DISINTEGRATING 4 MG TAB PO PRN (07:07)
[2018-05-01] MEDS ORDERED: ONDANSETRON 4 MG/2 ML VIAL IVP ONE ×2 (07:15→07:18)
[2018-05-01] MEDS ORDERED: ONDANSETRON 4 MG/2 ML VIAL ONE (07:16)
[2018-05-01] MEDS ORDERED: HYDROmorphONE/DILAUDID 1 MG/ML INJ IVP PRN (07:17)
[2018-05-01] MEDS ORDERED: ALBUTEROL 3 ML DEYVIAL IH PRN (07:17)
[2018-05-01] MEDS ORDERED: LORazepam 0.5 MG TAB PO PRN (07:17)
[2018-05-01] MEDS ORDERED: PROMETHAZINE HCL 25 MG/ML INJ IVP PRN (07:17)
[2018-05-01] MEDS ORDERED: diphenhydrAMINE 25 MG CAP PO PRN (07:17)
--- NOTE | 2018-05-01 07:23 | PDGENHP ---
History and Physical - Chief Complaint cough, fever - History of Present Illness Source -Patient provides history and appears reliable. EMR was reviewed and case discussed with ED provider. 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 Since that time patient has had some increased nausea vomiting and since that time had not been able to keep any fluids down. Patient reports that his vomiting improved with oral Zofran and resolved on 3 days ago. He continues to have some nausea which is limiting his oral intake. He has been having sips of clear brought or soups. The last 2 days patient with increased cough but denies any shortness of breath. Reports cough to be dry. He has not had any diarrhea. No abdominal pain. No new rashes or sores. Patient denies any dysuria. Patient was admitted on 2017 for neutropenic fever and a postobstructive pneumonia with hypoxia. Was discharged on oxygen which he has been off of for the past week. The last 2 days also reports that she has noted that patient has become increasingly pale. Patient had significant weakness and dizziness early this morning and paramedics were called. Upon arrival patient was noted to be hypoxic, hypotensive and febrile History Information - Allergies/Home Medication List Allergies/Adverse Reactions: No Known Allergies Allergy (Verified 05/01/18 05:35) Home Medications: Gabapentin [Gabapentin 800 mg] 800 mg PO TID 03/04/16 [Last Taken Unknown] Levothyroxine [Synthroid 75 mcg (*)] 75 mcg PO DAILY06 02/24/18 [Last Taken Unknown] Losartan Potassium [Cozaar 25 mg (*)] 25 mg PO BID 02/24/18 [Last Taken Unknown] Ondansetron HCl [Zofran] 8 mg PO Q8 PRN 02/24/18 [Last Taken Unknown] Pravastatin Sodium [Pravachol] 10 mg PO HS 02/24/18 [Last Taken Unknown] Sertraline HCl [Zoloft 50mg (*)] 50 mg PO HS 02/24/18 [Last Taken Unknown] Sildenafil Citrate 25 - 100 mg PO DAILY PRN 02/24/18 [Last Taken Unknown] clonazePAM [Clonazepam] 0.5 mg PO BID 02/24/18 [Last Taken Unknown] metFORMIN HCL [Glucophage 500 mg (*)] 500 mg PO DAILY@12 02/24/18 [Last Taken Unknown] OLANZapine [ZyPREXA 2.5 mg (*)] 2.5 mg PO DAILY 04/03/18 [Last Taken Unknown] Codeine Phosphate/Guaifenesin [Codeine-Guaifen 10-100 mg/5 ml] 5 ml PO Q4HRS PRN 05/01/18 [Last Taken 04/30/18] I have personally reviewed and updated: family history, medical history, social history, surgical history - Past Medical History hypertension, hyperlipidemia Additional medical history: Metastatic adenoid cystic carcinoma. Hypothyroidism - Surgical History Additional surgical history: Multiple facial surgeries for cancer - Family History Positive for: non-pertinent (Patient denies) - Social History Smoking Status: Never smoked Alcohol Use: None Drug Use: None Additional social history: Patient is lives with his . Cor status DNR DNI. Review of Systems Review of Systems: ROS: 10pt was reviewed & negative except for what was stated in HPI & below Constitutional: Reports: fever, weakness (Generalized) EENMT: Reports: no symptoms Cardiac: Reports: no symptoms Respiratory: Reports: cough, wheezing (Related to tumor obstruction). Denies: shortness of breath Gastrointestinal: Reports: vomitting (Last episode 3 days ago.), nausea (Post chemo). Denies: diarrhea Genitourinary: Reports: no symptoms Muscolosketal: Reports: no symptoms Skin: Reports: other ( reports pallor in the last 2 days.) Neurological: Reports: weakness (Generalized weakness) Hematologic/Lymphatic: Reports: anemia. Denies: easy bleeding Physical Exam Physical Exam: Selected Entries 05/01/18 05:10 Heart Rate 97 Respiratory 20 Rate O2 Sat (%) 76 L Temperature (C) 36.9 C Blood Pressure 74/50 L Mean Arterial 58 L Pressure (MAP) O2 Delivery Room Air Mode Temperature Oral Source Temp Pulse Resp BP Pulse Ox 37.3 C 85 20 87/57 L 92 05/01/18 06:45 05/01/18 06:45 05/01/18 06:23 05/01/18 06:45 05/01/18 06:45 Constitutional: no apparent distress, chronically ill appearing, other (NAD. Pleasant frail and pale appearing gentleman is sitting up in gurney. is at bedside.) Eyes: anicteric sclera, EOMI (Left eye), No scleral injection Ears, Nose, Mouth, Throat: moist mucous membranes, other (Postoperative changes with right side of the face remove.) Cardiovascular: regular rate and rhythym, pulses symmetric bilaterally, other ( Distant heart sounds), No edema Peripheral Pulses: 2+: dorsalis-pedis (R), dorsalis-pedis (L) Respiratory: no respiratory distress, reduced air movement, rhonchi ( Bilaterally right greater than left.), No no rales or rhonchi Gastrointestinal: soft, non-tender abdomen, no palpable masses, other ( Hypoactive bowel sounds), No tenderness Genitourinary: no bladder tenderness, No mims in urethra Skin: warm, no rashes or abrasions, other (Pale) Musculoskeletal: generalized weakness Neurologic: AAOx3, sensation intact bilaterally, other (Grossly Nonfocal exam) Psychiatric: interacting appropriately, not anxious, not encephalopathic, thought process linear Lab Data & Imaging Review 05/01/18 05:22 05/01/18 05:22 WBC 1.10 10^3/uL (3.80-9.50) L 05/01/18 05:22 RBC 2.22 10^6/uL (4.40-6.38) L 05/01/18 05:22 Hgb 6.4 g/dL (13.7-17.5) L 05/01/18 05:22 Hct 19.2 % (40.0-51.0) L 05/01/18 05:22 MCV 86.5 fL (81.5-99.8) 05/01/18 05:22 MCH 28.8 pg (27.9-34.1) 05/01/18 05:22 MCHC 33.3 g/dL (32.4-36.7) 05/01/18 05:22 RDW 15.8 % (11.5-15.2) H 05/01/18 05:22 Plt Count 36 10^3/uL (150-400) L 05/01/18 05:22 MPV 10.4 fL (8.7-11.7) 05/01/18 05:22 Neut % (Auto) Not Reported 05/01/18 05:22 Lymph % (Auto) Not Reported 05/01/18 05:22 [place] % (Auto) Not Reported 05/01/18 05:22 Eos % (Auto) Not Reported 05/01/18 05:22 Baso % (Auto) Not Reported 05/01/18 05:22 Nucleat RBC Rel Count Not Reported 05/01/18 05:22 Absolute Neuts (auto) Not Reported 05/01/18 05:22 Absolute Lymphs (auto) Not Reported 05/01/18 05:22 Absolute Monos (auto) Not Reported 05/01/18 05:22 Absolute Eos (auto) Not Reported 05/01/18 05:22 Absolute Basos (auto) Not Reported 05/01/18 05:22 Absolute Nucleated RBC Not Reported 05/01/18 05:22 Immature Gran % Not Reported 05/01/18 05:22 Seg Neutrophils % 55.5 % 05/01/18 05:22 Band Neutrophils % 8.1 % 05/01/18 05:22 Lymphocytes % 17.2 % 05/01/18 05:22 Monocytes % 19.2 % 05/01/18 05:22 Eosinophils % 0.0 % 05/01/18 05:22 Basophils % 0.0 % 05/01/18 05:22 Metamyelocytes % 0.0 % 05/01/18 05:22 Myelocytes % 0.0 % 05/01/18 05:22 Promyelocytes % 0.0 % 05/01/18 05:22 Blast Cells % 0.0 % 05/01/18 05:22 Immature Gran # Not Reported 05/01/18 05:22 Absolute Seg Neuts 0.61 10^3/uL (1.70-6.50) L 05/01/18 05:22 Absolute Band Neuts 0.09 10^3/uL (0.00-0.70) 05/01/18 05:22 Absolute Lymphocytes 0.19 10^3/uL (1.00-3.00) L 05/01/18 05:22 Absolute Monocytes 0.21 10^3/uL (0.30-0.80) L 05/01/18 05:22 Absolute Eosinophils 0.00 10^3/uL (0.03-0.40) L 05/01/18 05:22 Absolute Basophils 0.00 10^3/uL (0.02-0.10) L 05/01/18 05:22 Absolute Metamyelocyte 0.00 10^3/mL (0.00-0.00) 05/01/18 05:22 Absolute Myelocytes 0.00 10^3/mL (0.00-0.00) 05/01/18 05:22 Absolute Promyelocytes 0.00 10^3/uL (0.00-0.00) 05/01/18 05:22 Absolute Plasma Cells 0.00 10^3/uL (0.00-0.00) 05/01/18 05:22 Nucleated RBCs 1.0 /100 WBC (0-0) H 05/01/18 05:22 Absolute Blast Cells 0.00 10^3/uL (0.00-0.00) 05/01/18 05:22 Plasma Cells % 0.0 % 05/01/18 05:22 Platelet Estimate DECREASED (ADEQ) L 05/01/18 05:22 Microcytic Cells 1+ H 05/01/18 05:22 VBG Lactic Acid 1.0 mmol/L (0.7-2.1) 05/01/18 05:22 Sodium 131 mEq/L (135-145) L 05/01/18 05:22 Potassium 4.4 mEq/L (3.5-5.2) 05/01/18 05:22 Chloride 101 mEq/L (97-110) 05/01/18 05:22 Carbon Dioxide 23 mEq/l (22-31) 05/01/18 05:22 Anion Gap 7 mEq/L (6-14) 05/01/18 05:22 BUN 39 mg/dL (7-23) H 05/01/18 05:22 Creatinine 1.9 mg/dL (0.7-1.3) H 05/01/18 05:22 Estimated GFR 37 05/01/18 05:22 Glucose 113 mg/dL (70-100) H 05/01/18 05:22 Calcium 8.7 mg/dL (8.5-10.4) 05/01/18 05:22 Nasal Influenza A PCR NEGATIVE FOR FLU A (NEGATIVE) 05/01/18 05:30 Nasal Influenza B PCR NEGATIVE FOR FLU B (NEGATIVE) 05/01/18 05:30 Patient ABO/Rh A POSITIVE 05/01/18 05:50 Antibody Screen NEGATIVE 05/01/18 05:50 Crossmatch IS Only See Detail 05/01/18 05:50 Imaging Review: Chest x-ray reviewed it myself. Report is still pending. 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 Neutropenic fever (Acute) - blood cultures obtained. Status post 3 L of IV fluid. Patient started on vancomycin and cefepime. Pneumonia (Acute) - patient started on vancomycin and cefepime in setting of neutropenic fever. Patient with metastatic disease to the lungs and likely persistent postobstructive pneumonia. He does not meet severe sepsis criteria at this time. Adenoid cystic carcinoma (Acute) - chemotherapy last received 10 days ago. oncology notified will see the patient the floor. Anemia (Acute) and thrombocytopenia - H&H declined post chemotherapy. Blood transfusion in process. Patient without any active bleeding. Platelet count is 36k. Hold off on platelet transfusion the unless otherwise recommended by Oncology. Hypoxia (Acute) - supplemental oxygen p.r.n. Hypotension - status post 3 L of IV fluid. H&H decline and receiving blood as noted above. Patient is amenable to pressor support if indicated would like to avoid the ICU if possible. Acute kidney injury - likely prerenal in nature in setting of dehydration and hypotension. Hyponatremia - likely secondary to hypovolemia. IV fluids as noted above repeat BMP in the morning. FEN - continue IV fluid support. Transfusion in process. Electrolytes adequate as noted above. Advance diet as tolerated. PPX-SCDs. Holding anticoagulation in setting of pancytopenia. Cor status-DNR/DNI Disposition-patient will be admitted inpatient status on SDU floor pending reassessment of blood pressure is a following transfusion. He would like to avoid ICU level of care. Patient may require pressure support if no significant improvement in blood pressures and a subsequent transferred ICU status.
[2018-05-01] MEDS: NS 1,000 ML IV SCH ×2 (08:45→14:23)
[2018-05-01] MEDS ORDERED: NOREPINEPHRINE BITARTRATE 16 MG in NS 250 ML IV SCH (09:30)
[2018-05-01] MEDS: NOREPINEPHRINE BITARTRATE 4 MG in NS 500 ML IV SCH ×2 (10:00→17:33)
--- NOTE | 2018-05-01 10:42 | GOP ---
DATE OF OPERATION: 05/01/2018 SURGEON: Efrain Arroyo MD SPA COORDINATOR: None. ANESTHESIA: 1% lidocaine. PREOPERATIVE DIAGNOSIS: Hypotension and sepsis. POSTOPERATIVE DIAGNOSIS: Hypotension and sepsis. PROCEDURE PERFORMED: Ultrasound-guided left internal jugular central venous catheter placement. FINDINGS: Successful cannulation and placement of triple-lumen central venous catheter via ultrasoun d-guidance into the left internal jugular vein. SPECIMENS: None. ESTIMATED BLOOD LOSS: 2 cc. DESCRIPTION OF PROCEDURE: The patient was greeted in the intensive care unit. After explaining the risks, benefits, and alternatives, consent was signed. A [employer] time-out was perf ormed. The patient's left neck was then prepped and draped in typical sterile fashion. I identified the left internal jugular vein, which was widely patent. The patient was placed in gent le Trendelenburg position. After anesthetizing the overlying skin and soft tissue, I successfully ca nnulated the vein with a single stick. The guidewire successfully went in without issue. There were some PACs upon initial placement, which resolved. I then serially dilated and the line was then ins erted to 16 cm at the skin. It both flushed and withdrew appropriately. It was attached to the skin with a Biopatch and interrupted silk stitch. A sterile dressing was placed. The patient tolerated the procedure well without any apparent complications. Postplacement chest x-r ay showed adequate positioning without any apparent complication. DRAINS: None. COMPLICATIONS: No intraoperative complications. /[id number]/MODL
[2018-05-01] MEDS: BENZONATATE 100 MG CAP PO PRN ×2 (11:26→19:06)
--- NOTE | 2018-05-01 12:13 | ECHO ---
[email or web address] [address] [address] Main: [phone] Fax: [email or web address] Echocardiogram Name: ALLI MERCER MR#: [id number] Study Date: 05/01/2018 Study Time: 11:12 AM Date of : 1965 Age: 52 year(s) Height: 198.1 cm (78 in.) Weight: 99.79 kg (220 lb.) BSA: 2.35 m2 Gender: Male Examination: Echo Indication: Cardiogenic shock, hypotension Image Quality: Contrast: Requested by: Tamir Brady BP: 105 mmHg/64 mmHg Heart Rate: Rhythm: Indication: Cardiogenic shock, hypotension Procedure Staff Glass Cleaner: Apple Morgan RDCS Reading Physician: Booker Chung MD Requesting Provider: Conclusions: Normal size left ventricle. No LV hypertrophy. Normal global systolic LV function. EF is 58 %. No regional wall motion abnormality. Normal diastolic LV function. Normal RV function. The left atrium is normal in size. The right atrium is normal in size. Mild tricuspid regurgitation is present. Right ventricular systolic pressure measures 34mmHg. The pulmonary artery pressure is mildly increased. The IVC is mildly dilated. No pericardial effusion. No pleural effusion. Measurements: Chambers Valvular Assessment AV/MV Valvular Assessment TV/PV Normal Normal Normal Name Value Range Name Value Range Name Value Range Ao Marya (2D): 3.2 cm (1.4 cm-2.6 AV Vmax: 1.33 m/s (1 m/s-1.7 TR Vmax: 2.43 mm/s ( - ) cm) m/s) TR PGmax: 24 mmHg ( - ) IVSd (2D): 0.9 cm (0.6 cm-1.1 AV maxP mmHg ( - ) syst. PAP: 34 mmHg ( - ) cm) AV meanP mmHg ( - ) PV Vmax: 1.03 m/s (0.6 m/s-0.9 LVDd (2D): 5.2 cm (4.2 cm-5.9 ROME (VTI): 1.8 cm ( - ) m/s) cm) MV E Vmax: 0.67 m/s ( - ) PV PGmax: 4 mmHg ( - ) LVDs (2D): 3.6 cm (2.1 cm-4 MV A Vmax: 0.51 m/s ( - ) cm) MV E/A: 1.31 ( - ) LVPWd (2D): 1.0 cm (0.6 cm-1 cm) MV PHT: 0.061 s ( - ) MVA (PHT): 3.6 s ( - ) Patient: ALLI MERCER Study Date: 05/01/2018 Page 1 of 2 11:12 AM LVOTd 2.1 cm 2.1 cm mm LVEF (2D): 58 (>=54 %) RVDd(2D): 3.2 cm (1.9 cm-3.8 cmmm) Continued Measurements: Chambers Valvular Assessment AV/MV Valvular Assessment TV/PV Name Value Name Value Name Value LADs: 3.7 cm MV DecTime: 187 m/s CVP (est.): 10 mmHg LADs Lon.1 cm MV E' Septal: 0.08 m/s LA Area: 16.2 cm2 MV E/E' Septal: 8.60 LA Volume: 41 ml MV E/E' Lateral: 5.00 LA Volume Index: 17.4 ml/m2 Additional Vessels Name Value Ao Ascendin.5 cm Inferior Vena Cava: 2.4 cm Findings: Left Ventricle: Normal size left ventricle. No LV hypertrophy. Normal global systolic LV function. EF is 58 %. No regional wall motion abnormality. Normal diastolic LV function. Right Ventricle: Normal size right ventricle. Normal RV function. Left Atrium: The left atrium is normal in size. Right Atrium: The right atrium is normal in size. Mitral Valve: The mitral valve is normal in appearance and function. Trivial mitral valve regurgitation. No mitral stenosis is present. Aortic Valve: The aortic valve is tri-leaflet. There is no significant aortic valve regurgitation. No aortic valve stenosis is present. Tricuspid Valve: The tricuspid valve is normal in appearance and function. Mild tricuspid regurgitation is present. Right ventricular systolic pressure measures 34mmHg. The pulmonary artery pressure is mildly increased. Pulmonic Valve: The pulmonic valve is normal in appearance and function. Aorta: The aorta is normal. Normal size aortic root measuring 3.2 cm. Normal size ascending aorta measuring 3.5 cm. IVC: The IVC is mildly dilated. Pericardium: No pericardial effusion. No pleural effusion. Exam Comments: Patient supine, apical imaging is off axis. (No Signature Object) Patient: ALLI MERCER Study Date: 05/01/2018 Page 2 of 2 11:12 AM [id number]
[2018-05-01] MEDS ORDERED: guaiFENesin/CODEINE PHOS 10 ML UDCUP PO PRN (12:15)
[2018-05-01] MEDS ORDERED: CEFEPIME HCL 2 GM in NS 100 ML IV SCH (13:00)
[2018-05-01] MEDS: ONDANSETRON 4 MG/2 ML VIAL IVP PRN ×2 (13:09→21:13)
[2018-05-01] MEDS ORDERED: IPRATROPIUM BROMIDE 0.5 MG/2.5 ML DEYVIAL IH PRN (13:12)
[2018-05-01] MEDS: CEFEPIME HCL 2 GM in NS 100 ML IV SCH ×2 (14:19→22:50)
--- NOTE | 2018-05-01 14:28 | GCON ---
PULMONARY/CRITICAL CARE CONSULTATION DATE OF CONSULTATION: 05/01/2018 REFERRING PHYSICIAN: Tamir Brady DO REASON FOR REFERRAL: Evaluation and management of cough, pulmonary infiltrates, and hypotension. HISTORY: The patient is a 52-year-old male who was diagnosed with adenocystic carcinoma in 2009. He underwent a total parotidectomy at that time and had postop radiation. He developed local recurrenc e in 2012, and underwent a more extensive resection with irradiation. He has subsequently developed pulmonary metastases. He has been treated with biologic therapy, but more recently has been changed to palliative cisplatin, doxorubicin and cyclophosphamide. He was admitted with a probable postobstr uctive pneumonia a month ago, which was treated with cefepime due to borderline neutropenia. He was treated and discharged, then underwent his most recent dose of chemotherapy about 10 days ago. He cabezas s had some nausea and vomiting. He has been having trouble keeping up with hydration. He has had so me increased nonproductive cough for the last few days, but denies any shortness of breath. He devel oped worsening weakness and dizziness. He was brought to the emergency department where he was found to be a bit hypotensive with a blood pressure of 70/50 and had an oxygen saturation of 76% on room a ir. He has been treated with several liters of IV fluids and reports that he feels better, however, his cough, which was fairly mild previously, has become much more severe this afternoon. His oxygen saturations are in the 90s on 4 L of oxygen. He overall feels quite a bit stronger since receiving I V fluids, as well as a transfusion of packed red blood cells. PAST MEDICAL HISTORY: 1. Metastatic adenoid cystic carcinoma. He is followed by Dr. Buck. 2. Hypothyroid. 3. Hypertension. 4. Hyperlipidemia. MEDICATIONS: At the time of admission include Gabapentin, Synthroid, Cozaar, Zofran, Pravachol, Zolo ft, sildenafil, clonazepam, metformin, olanzapine. ALLERGIES: None. SOCIAL HISTORY: The patient has never smoked and does not use alcohol. He is and lives with his . FAMILY HISTORY: Unremarkable. REVIEW OF SYSTEMS: A 10-point review of systems adds nothing to the History of Present Illness. PHYSICAL EXAMINATION: GENERAL: The patient is awake, alert and in no acute distress. VITAL SIGNS: Blood pressure is 95/54 with a heart rate of 79. His oxygen saturations are 98% on 4 L. He is afeb rile currently and has been afebrile throughout this hospitalization. A CVP is 8. The patient has a frequent nonproductive cough. HEENT: Status post extensive resection of a right-sided tumor includ ing orbital resection and partial mandibular resection. NECK: No adenopathy. Trachea is midline. CHEST: He has decreased breath sounds and rhonchi/wheezes on the right. CARDIAC: Regular rate and rhythm without murmur. ABDOMEN: Soft, nontender. Bowel sounds are present. EXTREMITIES: No clubb ing, cyanosis or edema. NEURO: The patient is awake and alert. He has no gross motor or sensory de ficits. LABORATORY: Hemoglobin was 6.4 at admission, down from 8.6 four weeks ago. White blood count is 1.1 with 63% neutrophils/bands. Platelet count is 36. Chemistry group shows a sodium of 131, a creatin ine is 1.9, up from 1.1 a month ago. Glucose is 113. D-dimer is 1.86. Lactate is 1.1, down from 2. 0 at admission. A flu swab is negative. Urinalysis is unremarkable. A chest x-ray shows multiple pulmonary nodules bilaterally. There is elevation of the right hemidiap hragm with consolidation of the middle lobe and lower lobe. Images reviewed by me. I reviewed a CAT scan from last month that shows near-complete obstruction of the right upper lobe at its takeoff, in addition to significant narrowing of the bronchus intermedius. There is also an occ lusion of the right lower lobe bronchus that is new compared to the prior CT scan. There are multipl e pulmonary nodules/masses. Images reviewed by me. An echocardiogram done today shows a normal global systolic function with an ejection fraction of 58% . The pulmonary artery pressure is estimated at 34 mmHg. ASSESSMENT: 1. Hypotension, hypoxemia. This is concerning for sepsis. However, the patient's lactate is still just borderline elevated. He has symptomatically responded to IV fluids, as well as a transfusion of packed red blood cells. He has been started empirically on vancomycin and cefepime. The most likel y source would be pulmonary with postobstructive pneumonia given that his chest x-ray findings have p rogressed compared to a month ago, when he was known to have significant intrapulmonary metastases wi th airway obstruction. 2. Anemia. The patient has pancytopenia, likely related primarily to his chemotherapy. There are n o signs or symptoms of acute blood loss. He has received a transfusion of 1 unit of packed red blood cells. 3. Adenocystic carcinoma. This is metastatic with extensive metastases to the lungs. He is current ly on palliative chemotherapy. 4. Thrombocytopenia. The patient does not have any signs of active bleeding currently. 5. Hypotension. This is likely due to the dehydration, as well as possible infection. He has respo nded to fluids. Echocardiogram does show some mild pulmonary artery pressure increase. Pulmonary em bolism remains a possibility. 6. Pneumonia. The patient likely has postobstructive pneumonia based on a prior CAT scan and curren t chest x-ray findings. He is appropriately covered with antibiotics. RECOMMENDATIONS: 1. I would like to exclude pulmonary embolism. Because of his elevated creatinine, I will check an ultrasound of the lower extremities to try to exclude DVT. If this is negative, heparin will be held . We will attempt to obtain a CAT scan of the chest wall to evaluate for pulmonary embolism, as well as to assess the degree of airway obstruction once his creatinine has improved. 2. Repeat hemoglobin level and consider repeat transfusion. 3. Follow chemistry group. 4. Will try increasing the dose of Robitussin AC to help his cough. In addition, I will write for H istussin, as well as nebulized lidocaine to see if we can help control his cough. 5. Follow blood cultures. /[id number]/MODL
--- NOTE | 2018-05-01 14:57 | PDMN ---
Medical Necessity Medical necessity: Pt meets inpt criteria per MD order and MCG M-160, Sepsis and Other Febrile Illness, without Focal Infection, A-3 days. 52 y/o w/adenoid cystic carcinoma w/mets to lungs presenting w/ fever, weakness, dizziness, hypoxia, hypotension, cough, and nausea admitted w/neutropenic fever, likely postobstructive pna, anemia, hypotension (74/52 on admit), hypoxemia ( requiring 2-4 LO2 oxymask), MONICA (BUN/creat 39/1.9), hyponatremia, and possible sepsis. Na 131, WBC's 1.1, Plt 36, H&H 7.0, 20.7 (pt rec'd 1 U PRBC's). Blood cultures pending, IV ABX's, IVF, IV antiemetics, central line placement, SDU care, anticipate>2MN for ongoing eval/management of above.
--- NOTE | 2018-05-01 15:18 | GCON ---
NEW PATIENT CONSULTATION. PRIMARY ONCOLOGIST: Dr. Efren Buck. 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 HISTORY OF PRESENT ILLNESS: The patient is a pleasant 52-year-old man who had a diagnosis of adenoid cystic carcinoma in 2006. He now has evidence of metastatic disease and is ongoing palliative chemo therapy. The patient was recently admitted for postobstructive pneumonia, status post a course of antibiotics and oxygen. He was discharged from the hospital just a few weeks ago around the same time after chem otherapy 7 to 10 days after his last infusion. The patient received cycle 5, day 1 of cisplatin, doxorubicin, and cyclophosphamide on 04/21/2018. T his was given with growth factor support. The patient started to experienced increasing cough again with shortness of breath about 4 days ago and developed a fever yesterday. He reports significant cough and worsening shortness of breath. He also reports nausea and decreased p.o. intake. He denies any diarrhea or constipation. He denies any swelling in his lower or upper extremities. His cough has been relatively nonproductive. The patient has also become increasingly pale. He has had significant weakness and dizziness. He denies any melena or bright red blood per r ectum. He denies hemoptysis. In the ER, he was found to meet sepsis criteria. Fortunately, lactate was normal. He was hypotensiv e and resuscitated with IV fluids. He is requiring pressor support at this time. Labs will be discu ssed below. Chest x-ray on admission showed relatively stable dominant bilateral pulmonary nodules compatible wit h metastatic adenoid cystic carcinoma, focal area of denser consolidation suspected right middle lobe . REVIEW OF SYSTEMS: As per HPI. Otherwise, 14-point review of systems negative. PAST MEDICAL HISTORY: Adenoid cystic carcinoma as detailed above, hyperglycemia, anorexia, dehydrati on, history of hypertension and hyperlipidemia. SURGICAL HISTORY: Multiple facial surgeries for cancer. FAMILY HISTORY: Non-pertinent. SOCIAL HISTORY: Never smoked. The patient is and lives with his . He is DNR, DNI. CURRENT MEDICATIONS: In the hospital, include: Nebulizer, Tylenol, cefepime, clonazepam, gabapentin , hydromorphone, levothyroxine, lorazepam, norepinephrine, olanzapine, ondansetron, pravastatin, sert raline, vancomycin. PHYSICAL EXAM: VITAL SIGNS: Blood pressure 95/54 on pressor support, heart rate 79, respiratory rat e 23, temperature is 36.9. GENERAL: Chronically ill gentleman, not in acute distress. HEENT: Francia ent is missing what appears to be half his face. 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 The central wound over orbit twila ears to have good eschar and no evidence of localized infection. CARDIOVASCULAR: Regular rate and r hythm. LUNGS: Diffuse rhonchi and wheezing throughout, not moving air well. ABDOMEN: Soft, nonten jen. No enlarged liver or spleen. LOWER EXTREMITIES: Notes no significant edema. NEUROLOGIC: Non focal. LABORATORY/IMAGING: White blood cell count 1.1 with an ANC of 600, hemoglobin 6.4, hematocrit 19.2, platelet count of 36. ANC is about 700. D-dimer 1.86. Lactic acid 1.1. Sodium 131, BUN 39, creati nine 1.9, calcium 8.7. Urinalysis negative. Influenza A and B PCR negative. Blood cultures are cur rently pending. Chest x-ray as detailed above. ASSESSMENT/PLAN: 52-year-old gentleman with metastatic adenoid cystic carcinoma, currently on pallia tive chemotherapy, status post cycle 5, day 1 of cisplatin, doxorubicin, cyclophosphamide on 04/21/19 19, with growth factor support. Patient was admitted with cough and fever in the setting of neutrope roula. 1. Cough and fever. Presumably source is lung, with extensive pulmonary metastasis. Would guess he has a persistent postobstructive pneumonia. He is on vancomycin and cefepime in the ICU on pressor support and intravenous fluids. Blood cultures currently pending. 2. Neutropenia, not severe given total ANC of 700; however, covering with antibiotics aggressively g iven recent hospitalization. Given the fact he received G-CSF 04/21/2018, I do not see any benefit o f adding more growth factor at this time. Will monitor. 3. Anemia in the setting of chronic disease. No active bleeding suspected. He is receiving a blood transfusion today. 4. Adenoid cystic carcinoma. Was planning repeat CT chest, abdomen, and pelvis next week. I think we can reasonably do this in the hospital as I would like to assess lung findings on CT. This can be scheduled for the next day or two. We will need to make sure creatinine improves before giving him intravenous contrast. 5. Thrombocytopenia in relation to chemotherapy. No reason to transfuse platelets at this time. We will continue to monitor. 6. Acute kidney injury, likely pre renal. Getting intravenous hydration. We will continue to follow patient along in the hospital. He is DNR, DNI. Will update Dr. Cielo alexis patient's admission. 30 minutes was spent with the patient and , more than 50% time counseling and coordinating care. /[id number]/MODL
--- NOTE | 2018-05-01 15:43 | HOSPPROG ---
Hospitalist Progress Note Assessment/Plan: Shock - Admitted overnight with hypotension, hypoxemia, fever - Concerning for sepsis given fever, neutropenia, however LA WNL on admission - Started on Sepsis protocol with 30 cc/kg bolus, blood cultures collected, Vancomycin and Cefepime - CXR on admission shows likely postobstructive PNA, RML - F/u culture data, will continue Vancomycin and Cefepime for now - TTE ordered this morning which showed normal EF, not concerning for cardiogenic source - PE on differential (obstructive shock), elevated D-dimer this AM - Critical care ordered LE U/S to evaluate for DVT, will proceed for CTA Chest when creatinine is improved - Continue IVF RML Pneumonia - Management as above with broad spectrum abx including vancomycin and cefepime - F/u culture data to tailor abx - Pulmonology following - Would like CT of chest, will await for Cr to improve prior to contrast administration - Antitussives ordered PRN ARF - Cr 1.9 on admission, baseline ~1.1 - Likely prerenal etiology in setting of hypotension, dehydration - Continue to monitor Cr, I/O, avoid nephrotoxic agents Pancytopenia - In setting of recent chemotherapy Neutropenic with ANC 700, s/p G-CSF on 04/21/2017, per oncology no benefit to repeat at this time - Anemic, H/H 6.4/19 on admission, s/p 1 unit PRBCs on admission, continue to monitor CBC - Platelets 36 on admission, no s/s of bleeding, continue to monitor Adenoid Cystic Carcinoma - Follows with Dr. Buck - Seen by Oncology this AM, they were planning on repeat CT C/A/P next week, will do inpatient after creatinine improvemenet FEN: IVF, Regular Code: DNR/DNI Dispo: Pending Clinical course Objective: Vital Signs Temp Pulse Resp BP Pulse Ox 36.9 C 74 17 102/54 L 97 05/01/18 12:00 05/01/18 15:00 05/01/18 15:00 05/01/18 15:00 05/01/18 15:00 Laboratory Results 05/01/18 13:35 05/01/18 13:35 04/30/18 05/01/18 05/02/18 05:59 05:59 05:59 Intake Total 3000 Output Total 1000 Balance 1999 ICD10 Worksheet Patient Problems: Problems Problem Status Onset Adenoid cystic carcinoma Acute Anemia Acute Hypoxia Acute Neutropenic fever Acute Pneumonia Acute Cough Acute Fever Acute Hypoxemia Acute Neutropenia Acute
[2018-05-01] MEDS: GABAPENTIN 400 MG CAP PO SCH ×2 (16:10→20:42)
[2018-05-01] MEDS: guaiFENesin/CODEINE PHOS 10 ML UDCUP PO PRN ×2 (16:45→22:53)
--- NOTE | 2018-05-01 18:37 | ASMTCMCOM ---
CM Note CM Note Notes: Reviewed chart, spoke with Dr. Brady. Pt admitted for nausea, vomiting, fever, shortness of breath, neutropenia. 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 Pt is currently undergoing chemotherapy and has had 7 recent facial surgeries secondary to cancer. Pt is and lives with his . He is a DNR/DNI. Discharge needs remain unclear at this time. Anticipate pt will likely discharge home independently with family support when stable. CM will continue to follow for any potential needs. Discharge Plan: To be determined, likely independent Date Signed: 05/01/2018 06:37 PM Electronically Signed By:Nkechi Cameron RN
[2018-05-01] MEDS: VANCOMYCIN 1 GM in NS 250 ML IV SCH (19:47)
[2018-05-01] MEDS: oxyCODONE IR 5 MG TAB PO PRN (20:40)
[2018-05-01] MEDS: clonazePAM 1 MG TAB PO SCH (20:42)
[2018-05-01] MEDS: SERTRALINE HCL 50 MG TAB PO SCH (20:42)
[2018-05-01] MEDS ORDERED: PRAVASTATIN SODIUM 10 MG TAB PO SCH (21:00)
[2018-05-02] MEDS: oxyCODONE IR 5 MG TAB PO PRN ×5 (00:45→23:05)
[2018-05-02] MEDS: BENZONATATE 100 MG CAP PO PRN ×4 (00:45→20:49)
[2018-05-02] MEDS: guaiFENesin/CODEINE PHOS 10 ML UDCUP PO PRN ×5 (03:00→23:05)
[2018-05-02] MEDS: LEVOTHYROXINE 75 MCG TAB PO SCH (05:08)
[2018-05-02] MEDS: NOREPINEPHRINE BITARTRATE 4 MG in NS 500 ML IV SCH ×2 (05:08→07:30)
[2018-05-02] MEDS: NS 1,000 ML IV SCH ×2 (05:08→14:05)
[2018-05-02] MEDS: CEFEPIME HCL 2 GM in NS 100 ML IV SCH ×2 (05:08→14:05)
[2018-05-02 06:20] LABS: PLATELET COUNT 36 10^3/uL (150-400)
[2018-05-02] MEDS: VANCOMYCIN 1 GM in NS 250 ML IV SCH (07:30)
[2018-05-02] MEDS: clonazePAM 1 MG TAB PO SCH ×2 (08:52→20:49)
[2018-05-02] MEDS: GABAPENTIN 400 MG CAP PO SCH ×3 (08:53→20:49)
[2018-05-02] MEDS ORDERED: IOHEXOL 350mgI/ML (OMNIPAQUE) 150 ML BTL IV ONE (08:53)
[2018-05-02] MEDS: OLANZapine 2.5 MG TAB PO SCH (08:53)
[2018-05-02] MEDS ORDERED: BISACODYL 10 MG SUPP PR PRN (10:47)
[2018-05-02] MEDS ORDERED: MAGNESIUM HYDROXIDE 30 ML UDCUP PO PRN (10:47)
[2018-05-02] MEDS ORDERED: LACTULOSE 20 GM/30 ML UDCUP PO PRN (10:47)
[2018-05-02] MEDS ORDERED: POLYETHYLENE GLYCOL 3350 17 GM PKT PO PRN (10:47)
[2018-05-02] MEDS: IPRATROPIUM/ALBUTEROL 3 ML DEYVIAL IH SCH ×3 (12:09→21:32)
--- NOTE | 2018-05-02 12:33 | HOSPPROG ---
Hospitalist Progress Note Assessment/Plan: Shock - Admitted with hypotension, hypoxemia, fever - Concerning for sepsis given fever, neutropenia, however LA WNL on admission - Started on Sepsis protocol with 30 cc/kg bolus, blood cultures collected, Vancomycin and Cefepime - CXR on admission shows likely postobstructive PNA, RML - CTA Chest performed due to elevated D-dimer on admission this AM showing no PE , dense RLL consolidation - F/u culture data, will continue Vancomycin and Cefepime for now - TTE ordered yesterday AM which showed normal EF, not concerning for cardiogenic source - Continue IVF, wean Levophed today RML Pneumonia - Management as above with broad spectrum abx including vancomycin and cefepime - F/u culture data to tailor abx - Pulmonology following - Antitussives ordered scheduled and PRN ARF - Cr 1.9 on admission, baseline ~1.1, Cr 12.1 this AM s/p IVF - Likely prerenal etiology in setting of hypotension, dehydration - Continue to monitor Cr, I/O, avoid nephrotoxic agents Pancytopenia - In setting of recent chemotherapy - Neutropenic with ANC 700 on admission, s/p G-CSF on 04/21/2017, per oncology no benefit to repeat at this time - Anemic, H/H 6.4/19 on admission, s/p 1 unit PRBCs on admission, Hgb 8.1 this AM - Platelets 36 on admission, no s/s of bleeding, continue to monitor, transfuse H/H <7/20 Adenoid Cystic Carcinoma - Follows with Dr. Buck - Seen by Oncology, they were planning on repeat CT C/A/P next week, CTA chest FEN: IVF, Regular Code: DNR/DNI Dispo: Pending Clinical course Subjective: Patient reports feeling overall better this AM Objective: Vital Signs Temp Pulse Resp BP Pulse Ox 37 C 62 14 99/69 L 99 05/02/18 08:00 05/02/18 12:09 05/02/18 12:09 05/02/18 11:00 05/02/18 12:09 Laboratory Results 05/02/18 05:25 05/02/18 05:25 05/01/18 05/02/18 05/03/18 05:59 05:59 05:59 Intake Total 8435 Output Total 2800 300 Balance 5635 -300 - Physical Exam Constitutional: chronically ill appearing Eyes: PERRL Ears, Nose, Mouth, Throat: moist mucous membranes Cardiovascular: regular rate and rhythym Respiratory: no respiratory distress, reduced air movement Skin: warm Musculoskeletal: generalized weakness Neurologic: AAOx3 Psychiatric: interacting appropriately ICD10 Worksheet Patient Problems: Problems Problem Status Onset Adenoid cystic carcinoma Acute Anemia Acute Hypoxia Acute Neutropenic fever Acute Pneumonia Acute Sepsis Acute Cough Acute Fever Acute Hypoxemia Acute Neutropenia Acute
--- NOTE | 2018-05-02 13:27 | SOAPPROG ---
SOAP Progress Note Assessment/Plan: A/P: * RLL PNA: recent hospitalization for likely post-obstructive PNA. Cxs pending. * Metastatic adenoidcystic carcinoma (lung): most recent chemo (cis/dox/cytoxan ) 04/21/18 with Neulasta. Complete restaging (CT A/P) while inpatient. * Pancytopenia: likely multifactorial (acute illness, infxn, chemo). ANC improved. No indication for xfus today. * Acute kidney injury: Cr improved. 05/02/18 13:24 Subjective: Feels better than on admission. Dry cough. O: VS reviewed, AF Gen: A&O. HEENT: sig. postoperative R facial deformity. Lungs: reduced BS. Laboratory Tests 05/02/18 05/02/18 05:25 05:25 WBC 2.43 L Hgb 8.1 L Plt Count 36 L Absolute Seg Neuts 1.62 L Absolute Band Neuts 0.23 Sodium 134 L Potassium 4.2 Chloride 106 Carbon Dioxide 23 Anion Gap 5 L BUN 22 Creatinine 1.1 Glucose 121 H Objective: Vital Signs Temp Pulse Resp BP Pulse Ox 37 C 65 12 91/53 L 99 05/02/18 13:00 05/02/18 13:00 05/02/18 13:00 05/02/18 13:00 05/02/18 13:00 Laboratory Results 05/02/18 05:25 05/02/18 05:25 05/01/18 05/02/18 05/03/18 05:59 05:59 05:59 Intake Total 8435 250 Output Total 2800 900 Balance 5635 -650 ICD10 Worksheet Patient Problems: Problems Problem Status Onset Adenoid cystic carcinoma Acute Anemia Acute Hypoxia Acute Neutropenic fever Acute Pneumonia Acute Sepsis Acute Cough Acute Fever Acute Hypoxemia Acute Neutropenia Acute
--- NOTE | 2018-05-02 15:10 | ASMTCMCOM ---
CM Note CM Note Notes: Pt discussed in rounds today. Palliative consult was requested. Palliative care team spoke with [facility] and they feel pt would be appropriate for palliative at this time. CM notified MD to put in palliative order. PT rec: Home with family support OT rec: Home CM to follow. Plan: Independent with Palliative Care Date Signed: 05/02/2018 03:02 PM Electronically Signed By:FREDDY Mejia
--- NOTE | 2018-05-02 15:52 | PDINTPN ---
Neurology Professor Progress Note Assessment/Plan: Assessment: Dense right lower lobe pneumonia. On cefepime and vancomycin. There is a question of aspiration, not well covered at this point. Blood cultures negative so far. No sputum obtained. Sepsis: Resolved. Neutropenic fever. WBC 2.4 today. Metastatic at adenoid cystic carcinoma. Status post extensive facial surgery. Known metastases to lungs. Getting palliative chemotherapy, last 04/21. Pulmonary metastases (stable) with partial obstruction of the right lower lobe/ middle lobe from compression of the bronchus intermedius Pancytopenia. Status post 1 unit of blood. Hematocrit 23.6 today. Following. Platelets 36,000, stable. Prophylaxis: SCDs, eating. Cough: Secondary to his pneumonia and in addition to significant bronchial compression on the right from malignant adenopathy...seems to be better Acute renal failure/ Volume depletion: Resolved Plan: Continue present care. Will DC cefepime and switched to ertapenem for coverage of anaerobes in addition to other organisms. Will continue vancomycin for now. Discontinue at 48 hr if cultures are negative. I will try to get a sputum culture if he brings up any. Follow laboratory and clinical status. Continue bronchodilator therapy and antitussives. Follow x-ray intermittently. He may need a bronchoscopy at some point to assess the degree of his right sided obstruction. If I can get be on this he may benefit from therapeutic aspiration? 40 min of critical care time spent directly with the patient. Discussed with the patient, nursing, respiratory, and the ICU multi disciplinary team. Subjective: Few feels better, doing better. Denies shortness of breath. Not much cough currently. No mucus. Denies pain. Objective: Vital Signs Temp Pulse Resp BP Pulse Ox 37 C 78 22 H 107/61 97 05/02/18 13:00 05/02/18 15:00 05/02/18 15:00 05/02/18 15:00 05/02/18 15:00 Laboratory Results 05/02/18 05:25 05/02/18 05:25 05/01/18 05/02/18 05/03/18 05:59 05:59 05:59 Intake Total 8435 670 Output Total 2800 1500 Balance 5635 -830 Laboratory Tests 05/02/18 05/02/18 05:25 05:25 Calcium 7.6 L Ionized Calcium 1.[address] a reviewed on PACS and compared to his previous CT about 3 weeks ago. New dense right lower lobe consolidation with a small effusion is present. Metastatic disease is unchanged. Compression of the bronchus intermedius from tumor is unchanged. Physical Exam - Physical Exam General Appearance: alert, no apparent distress, thin, No WD/WN (Status post major facial surgery on the right) EENT: other (Surgical changes. Requiring no oxygen at this point.) Neck: normal inspection (No obvious JVD) Respiratory: lungs clear (Anteriorly), decreased breath sounds (Bilaterally, more so at right base), rales (Some rales, consolidative changes at the right base), other (Fixed wheeze is present on the right with inspiration. Air moves very slowly through his obstruction), No rhonchi, No wheezing Cardiac/Chest: regular rate, rhythm Abdomen: normal bowel sounds, non-tender, soft Male Genitalia: other (Good urine output, using urinal) Skin: warm/dry, pallor Extremities: pedal edema (Trace) Neuro/Psych: no motor/sensory deficits, No cognition abnormalities ICD10 Worksheet Patient Problems: Problems Problem Status Onset Fever Acute Neutropenia Acute Hypoxemia Acute Anemia Acute Cough Acute Neutropenic fever Acute Pneumonia Acute Hypoxia Acute Adenoid cystic carcinoma Acute Sepsis Acute
[2018-05-02] MEDS: ERTAPENEM 1 GM in NS 100 ML IV SCH (17:33)
[2018-05-02] MEDS: SENNOSIDES/DOCUSATE SODIUM TAB PO SCH (20:49)
[2018-05-02] MEDS: VANCOMYCIN HCL/NORMAL SALINE 250 ML IV SCH (20:49)
[2018-05-02] MEDS: SERTRALINE HCL 50 MG TAB PO SCH (20:50)
[2018-05-03] MEDS: BENZONATATE 100 MG CAP PO PRN ×3 (03:20→16:44)
[2018-05-03] MEDS: guaiFENesin/CODEINE PHOS 10 ML UDCUP PO PRN ×3 (03:20→20:47)
[2018-05-03] MEDS: NS 1,000 ML IV SCH ×3 (03:21→21:06)
[2018-05-03] MEDS: LIDOCAINE 4% 5 ML AMP IH PRN (04:29)
[2018-05-03] MEDS: IPRATROPIUM/ALBUTEROL 3 ML DEYVIAL IH SCH ×4 (04:30→19:59)
[2018-05-03 05:14] LABS: PLATELET COUNT 43 10^3/uL (150-400)
[2018-05-03] MEDS: HYDROcodone/CPM TUSSIONEX 5 ML UDSYR PO PRN ×2 (05:48→18:25)
[2018-05-03] MEDS: LEVOTHYROXINE 75 MCG TAB PO SCH (05:48)
[2018-05-03] MEDS: GUAIFENESIN/DM 10 ML UDCUP PO PRN ×2 (07:36→11:49)
[2018-05-03] MEDS: GABAPENTIN 400 MG CAP PO SCH ×3 (08:07→20:48)
[2018-05-03] MEDS: OLANZapine 2.5 MG TAB PO SCH (08:07)
[2018-05-03] MEDS: SENNOSIDES/DOCUSATE SODIUM TAB PO SCH ×2 (08:08→20:52)
[2018-05-03] MEDS: VANCOMYCIN HCL/NORMAL SALINE 250 ML IV SCH ×2 (08:08→20:06)
[2018-05-03] MEDS: clonazePAM 1 MG TAB PO SCH ×2 (08:08→20:48)
[2018-05-03] MEDS: ERTAPENEM 1 GM in NS 100 ML IV SCH (08:08)
--- NOTE | 2018-05-03 12:42 | PDINTPN ---
Structural Steel Engineer Progress Note Assessment/Plan: Assessment: Dense right lower lobe pneumonia. On ertapenem and vancomycin, can likely stop the latter. Possible aspiration pneumonia, possible postobstructive process. Blood cultures negative so far. No sputum obtained. Sepsis: Resolved. Neutropenic fever. WBC 2.9 today, slightly higher. Metastatic at adenoid cystic carcinoma. Status post extensive facial surgery. Known metastases to lungs. Getting palliative chemotherapy, last 04/21. Pulmonary metastases (stable) with partial obstruction of the right lower lobe/ middle lobe from compression of the R main/bronchus intermedius. May benefit from bronchoscopy to assess the degree of obstruction, try to pass through it, and removed any lower zone secretions that he cannot get up and by the obstruction. Pancytopenia. Status post 1 unit of blood. Hematocrit 25, platelets 43,000: both slightly better Prophylaxis: SCDs, eating. Cough: Secondary to his pneumonia and also to significant bronchial compression on the right from malignant adenopathy...seems to be progressively better, but episodes of coughing persist Acute renal failure/ Volume depletion: Resolved Plan: Continue present care. Continue ertapenem. Will continue vancomycin for now. Discontinue at 48 hr (tomorrow) if cultures are negative. Follow laboratory and clinical status. Continue bronchodilator therapy and antitussives. Will discuss bronchoscopy with Oncology. I would like to see his platelets higher, but we can give platelets prior to bronchoscopy. Will repeat chest x-ray tomorrow a.m. and make a decision about bronchoscopy at that time. 40 min of critical care time spent directly with the patient. Discussed with the patient, nursing, respiratory, and the ICU multi disciplinary team. Subjective: Doing okay. Denies significant shortness of breath. Intermittent episodes of coughing. Unable to bring up much mucus. Objective: Vital Signs Temp Pulse Resp BP Pulse Ox 37.7 C 79 22 H 88/56 L 94 05/03/18 11:46 05/03/18 11:46 05/03/18 11:46 05/03/18 11:46 05/03/18 11:46 Laboratory Results 05/03/18 04:15 05/03/18 04:15 05/02/18 05/03/18 05/04/18 05:59 05:59 05:59 Intake Total 8435 4695 Output Total 2800 2300 Balance 5635 2395 Laboratory Tests 05/03/18 04:15 Calcium 7.7 L Physical Exam - Physical Exam General Appearance: alert, no apparent distress, thin, other (Up in chair) EENT: other (On room air), No normal ENT inspection (Significant surgical deformity right face) Neck: normal inspection (No obvious JVD) Respiratory: decreased breath sounds (Right greater than left), rales (Few rales at the bases, ED a changes on right), wheezing (Fixed wheeze on the right in inspiration and expiration consistent with his known RLL obstruction), No rhonchi Cardiac/Chest: regular rate, rhythm, No gallop Abdomen: normal bowel sounds, non-tender, soft Skin: warm/dry, pallor Extremities: No pedal edema Neuro/Psych: no motor/sensory deficits (Nonfocal, weak), No cognition abnormalities (Very pleasant, appropriate) ICD10 Worksheet Patient Problems: Problems Problem Status Onset Fever Acute Neutropenia Acute Hypoxemia Acute Anemia Acute Cough Acute Neutropenic fever Acute Pneumonia Acute Hypoxia Acute Adenoid cystic carcinoma Acute Sepsis Acute
--- NOTE | 2018-05-03 13:11 | HOSPPROG ---
Hospitalist Progress Note Assessment/Plan: Shock, Resolved - Admitted with hypotension, hypoxemia, fever - Concerning for sepsis given fever, neutropenia, however LA WNL on admission - Sepsis protocol with 30 cc/kg bolus, blood cultures collected, Vancomycin and Cefepime started - Required Levophed initially, weaned off yesterday afternoon - CXR on admission shows likely postobstructive PNA, RML - CTA Chest performed due to elevated D-dimer on admission showing no PE, dense RLL consolidation - F/u culture data, Cefepime switched to Ertapenum per Critical Care yesterday, continuing Vancomycin for 48 hours, d/c if cultures negative - TTE ordered on admission which showed normal EF, not concerning for cardiogenic source RML Pneumonia - Management as above with broad spectrum abx including vancomycin and ertapenum - F/u culture data to tailor abx - Pulmonology following - Antitussives ordered scheduled and PRN ARF - Cr 1.9 on admission, baseline ~1.1, Cr 1.0 this AM s/p IVF - Likely prerenal etiology in setting of hypotension, dehydration - Continue to monitor Cr, I/O, avoid nephrotoxic agents Pancytopenia - In setting of recent chemotherapy - Neutropenic with ANC 700 on admission, s/p G-CSF on 04/21/2017, per oncology no benefit to repeat at this time - Anemic, H/H 6.4/19 on admission, s/p 1 unit PRBCs on admission, Hgb 8.3 this AM - Platelets 36 on admission, no s/s of bleeding, continue to monitor, transfuse H/H <7/20 Adenoid Cystic Carcinoma - Follows with Dr. Buck - Seen by Oncology, they were planning on repeat CT C/A/P next week, CTA chest FEN: IVF, Regular Code: DNR/DNI Dispo: Pending Clinical course Subjective: Patient reports feelinng overall improved this AM Objective: Vital Signs Temp Pulse Resp BP Pulse Ox 37.7 C 79 22 H 88/56 L 94 05/03/18 11:46 05/03/18 11:46 05/03/18 11:46 05/03/18 11:46 05/03/18 11:46 Laboratory Results 05/03/18 04:15 05/03/18 04:15 05/02/18 05/03/18 05/04/18 05:59 05:59 05:59 Intake Total 0535 4602 Output Total 8260 2300 Balance 5635 7085 - Physical Exam Constitutional: chronically ill appearing Eyes: PERRL Ears, Nose, Mouth, Throat: dry mucous membranes Cardiovascular: regular rate and rhythym Respiratory: no respiratory distress, reduced air movement Gastrointestinal: soft, non-tender abdomen Skin: warm Neurologic: AAOx3 Psychiatric: interacting appropriately ICD10 Worksheet Patient Problems: Problems Problem Status Onset Adenoid cystic carcinoma Acute Anemia Acute Hypoxia Acute Neutropenic fever Acute Pneumonia Acute Sepsis Acute Cough Acute Fever Acute Hypoxemia Acute Neutropenia Acute
[2018-05-03] MEDS: oxyCODONE IR 5 MG TAB PO PRN ×2 (13:46→20:48)
--- NOTE | 2018-05-03 14:41 | ASMTCMCOM ---
CM Note CM Note Notes: Palliative Care met with pt to discuss outpatient options. Pt was agreeable to meet with [facility] tomorrow () at 3pm. CM submit referral to [facility]. Pt is DNR/DNI but there is not any ppwk in the chart. Pt reports his will bring it in. Plan:home with [facility]iative [facility] Date Signed: 05/03/2018 02:40 PM Electronically Signed By:FREDDY Mejia
[2018-05-03] MEDS: SERTRALINE HCL 50 MG TAB PO SCH (20:48)
[2018-05-03] MEDS: ACETAMINOPHEN 325 MG TAB PO PRN (20:51)
[2018-05-04] MEDS: guaiFENesin/CODEINE PHOS 10 ML UDCUP PO PRN ×3 (00:39→15:19)
[2018-05-04] MEDS: LEVOTHYROXINE 75 MCG TAB PO SCH (05:21)
[2018-05-04] MEDS: oxyCODONE IR 5 MG TAB PO PRN (05:22)
[2018-05-04] MEDS: IPRATROPIUM/ALBUTEROL 3 ML DEYVIAL IH SCH ×4 (05:41→20:41)
[2018-05-04 05:48] LABS: PLATELET COUNT 52 10^3/uL (150-400)
[2018-05-04] MEDS: VANCOMYCIN HCL/NORMAL SALINE 250 ML IV SCH (07:29)
[2018-05-04] MEDS: GUAIFENESIN/DM 10 ML UDCUP PO PRN ×3 (09:02→18:39)
[2018-05-04] MEDS: OLANZapine 2.5 MG TAB PO SCH (09:02)
[2018-05-04] MEDS: GABAPENTIN 400 MG CAP PO SCH ×3 (09:02→20:07)
[2018-05-04] MEDS: ERTAPENEM 1 GM in NS 100 ML IV SCH (09:02)
[2018-05-04] MEDS: clonazePAM 1 MG TAB PO SCH ×2 (09:02→20:06)
[2018-05-04] MEDS: SENNOSIDES/DOCUSATE SODIUM TAB PO SCH ×2 (09:03→20:06)
[2018-05-04] MEDS: ACETAMINOPHEN 325 MG TAB PO PRN (09:09)
[2018-05-04] MEDS: NS 1,000 ML IV SCH (09:09)
--- NOTE | 2018-05-04 09:52 | HOSPPROG ---
Hospitalist Progress Note Assessment/Plan: Septic Shock, Resolved - presented with neutropenia, elevated Cr, hypotension in setting of PNA (?post-obstructive), now off pressors - cont Ertapenem, will dc Vanc - CTA Chest on admission pers reviewed, neg for PE, +dense RLL consolidation RML Pneumonia - may be post-obstructive in setting of metastatic cancer and obstructing right hilar mass - atbx as above - Pulmonology following, possible repeat bronch today - cont RT support ARF - Cr 1.9 -->1.0 this AM s/p IVF. Likely prerenal etiology in setting of hypotension, dehydration - Continue to monitor - avoid nephrotoxic agents Pancytopenia - likely 2/2 recent chemotherapy. 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 Discussed with Dr. Ramos. Subjective: Pt feels ok, no pain. Not much cough. No CP or SOB at rest. Taking some po. Objective: Vital Signs Temp Pulse Resp BP Pulse Ox 37.7 C 93 20 118/62 96 05/04/18 09:07 05/04/18 09:07 05/04/18 09:07 05/04/18 09:07 05/04/18 09:07 Laboratory Results 05/04/18 04:30 05/04/18 04:30 05/03/18 05/04/18 05/05/18 05:59 05:59 05:59 Intake Total 4695 4067 Output Total 2300 1500 Balance 2395 2567 - Physical Exam Constitutional: no apparent distress Eyes: other (right facial deformity 2/2 surgical excision of malignancy) Ears, Nose, Mouth, Throat: moist mucous membranes Cardiovascular: regular rate and rhythym Respiratory: no respiratory distress, reduced air movement Gastrointestinal: normoactive bowel sounds, soft, non-tender abdomen Skin: warm Musculoskeletal: full muscle strength Neurologic: AAOx3 Psychiatric: interacting appropriately ICD10 Worksheet Patient Problems: Problems Problem Status Onset Adenoid cystic carcinoma Acute Anemia Acute Hypoxia Acute Neutropenic fever Acute Pneumonia Acute Sepsis Acute Cough Acute Fever Acute Hypoxemia Acute Neutropenia Acute
[2018-05-04] MEDS: BENZONATATE 100 MG CAP PO PRN ×2 (11:57→18:39)
--- NOTE | 2018-05-04 12:12 | PDINTPN ---
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 On ertapenem. Vancomycin to stop today as blood cultures remain negative. Possible aspiration pneumonia, likely postobstructive process, at least partial. Chest x-ray worse on the right today. For therapeutic bronchoscopy attempt today. Sepsis: Resolved. Neutropenic fever. WBC 3.5 today, higher. 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 Getting palliative chemotherapy, last 04/21. Pulmonary metastases (stable) with partial obstruction of the right lower lobe/ middle lobe from compression of the R main/bronchus intermedius. May benefit from bronchoscopy to assess the degree of obstruction, try to pass through it, and removed any lower zone secretions that he cannot get up and by the obstruction. Pancytopenia. Status post 1 unit of blood. Hematocrit 23, stable platelets 52 ,000: better Prophylaxis: SCDs, eating. Cough: Secondary to his pneumonia and also to significant bronchial compression on the right from malignant adenopathy...better, but episodes of coughing persist. Acute renal failure/ Volume depletion: Secondary to sepsis. Resolved. Plan: Continue present care. Continue ertapenem. Discontinue vancomycin today. Follow laboratory and clinical status. Continue bronchodilator therapy and antitussives. For bronchoscopy today, npo prior. At above 50,000 platelets for the procedure are not indicated. Will discuss his case with Dr. Buck. 30 min of critical care time spent directly with the patient, not including bronchoscopy. Discussed with the patient, nursing, respiratory, and the ICU multi disciplinary team. Subjective: Doing okay. Intermittent cough, loose at times but unable to bring up much sputum. Denies chest pain Objective: Vital Signs Temp Pulse Resp BP Pulse Ox 37.7 C 84 14 118/62 100 05/04/18 09:07 05/04/18 11:41 05/04/18 11:41 05/04/18 09:07 05/04/18 11:41 Laboratory Results 05/04/18 04:30 05/04/18 04:30 05/03/18 05/04/18 05/05/18 05:59 05:59 05:59 Intake Total 4695 4067 Output Total 2300 1500 Balance 2395 2567 Laboratory Tests 05/04/18 04:30 Calcium 8.0 L CXR: Increased right-sided opacities Physical Exam - Physical Exam General Appearance: alert, no apparent distress, thin, other (Up in chair) EENT: other (On room air), No normal ENT inspection (Unchanged) Neck: other (No jugular venous distension) Respiratory: decreased breath sounds, rales, rhonchi, wheezing (Fixed wheeze on right persist) Cardiac/Chest: regular rate, rhythm, No gallop Abdomen: normal bowel sounds, non-tender, soft Male Genitalia: other (Using urinal, good urine output) Skin: warm/dry, pallor Extremities: No pedal edema Neuro/Psych: no motor/sensory deficits (Moves all extremities equally, globally weak), No cognition abnormalities ICD10 Worksheet Patient Problems: Problems Problem Status Onset Adenoid cystic carcinoma Acute Anemia Acute Hypoxia Acute Neutropenic fever Acute Pneumonia Acute Sepsis Acute Cough Acute Fever Acute Hypoxemia Acute Neutropenia Acute
[2018-05-04] MEDS ORDERED: LIDOCAINE 1% 300 MG/30 ML SDV MISC ONE (13:22)
[2018-05-04] MEDS ORDERED: MIDAZOLAM 2 MG/2 ML VIAL IVP ONE (14:15)
[2018-05-04] MEDS ORDERED: fentaNYL 100 MCG/2 ML INJ IVP ONE ×2 (14:15→15:18)
[2018-05-04] MEDS ORDERED: LIDOCAINE 1% 300 MG/30 ML SDV ONE (14:59)
[2018-05-04] MEDS ORDERED: MIDAZOLAM 2 MG/2 ML VIAL ONE (15:01)
[2018-05-04] MEDS ORDERED: fentaNYL 100 MCG/2 ML INJ ONE (15:01)
[2018-05-04] MEDS ORDERED: EPINEPHrine 1 MG/ML INJ ONE (15:04)
[2018-05-04] MEDS ORDERED: EPINEPHrine 1 MG/10 ML SYR IVP ONE ×2 (15:04→15:45)
--- NOTE | 2018-05-04 15:49 | GPN ---
[f rep st] PROCEDURE NOTE DATE OF PROCEDURE: 05/04/2018 PROCEDURE: Bronchoscopy. REASON FOR PROCEDURE: Postobstructive pneumonia in a patient with metastatic cancer to the lung. PROCEDURE NOTE: The procedure was performed in the patient's room in the intensive care unit. Infor med consent was obtained from the patient and his . Appropriate time-out was performed. Conscio us sedation included 4 mg of intravenous Versed and 100 mcg of fentanyl. Approximately 25 cc of 1% l idocaine was used for topical anesthesia of the posterior oropharynx and lower tracheobronchial tree. The fiberoptic bronchoscope was passed via a bite block orally into the larynx. The vocal cords were identified and cannulated. The bronchoscope was advanced into the trachea and in the lower tracheob ronchial tree. The trachea was normal as was the left side. In the right mainstem bronchus, there w as narrowing to the point of approximately 80% occlusion. There was evidence of both extrinsic compr ession and some endobronchial exophytic material consistent with malignancy. I was able to advance t he bronchoscope through the area of narrowing with gentle force. The bronchoscope popped through. T he right middle lobe, right lower lobe, and superior segment of the right lower lobe all appeared nor mal. I could never really identify the right upper lobe. There was little in the way of mucus. The re were no mucus plugs. A bronchial washing sample was obtained from this area. The scope was remov ed. Bleeding was minimal. 2 mL of 1:10,000 epinephrine was applied topically to control the bleedin g at the level of his obstruction from minor scope trauma. A culture was obtained and sent to the la b. There were no complications. Vital signs and oxygen saturations on supplemental oxygen remained stable throughout the procedure. IMPRESSION: 1. Approximately 80% occlusion of the right mainstem bronchus, extending down to the bronchus interm edius. Anatomy beyond was normal. However, the right upper lobe could not be identified. Both extr insic compression and endobronchial malignancy were present. The area of obstruction was quite dense and it was somewhat difficult to pass the bronchoscope through this. 2. No evidence of significant secretions or mucus plugging. /[id number]/MODL
[2018-05-04] MEDS: HYDROcodone/CPM TUSSIONEX 5 ML UDSYR PO PRN (20:05)
[2018-05-04] MEDS: SERTRALINE HCL 50 MG TAB PO SCH (20:07)
[2018-05-04] MEDS: LIDOCAINE 4% 5 ML AMP IH PRN (20:49)
[2018-05-05] MEDS: guaiFENesin/CODEINE PHOS 10 ML UDCUP PO PRN (01:03)
[2018-05-05] MEDS: LIDOCAINE 4% 5 ML AMP IH PRN (01:15)
[2018-05-05 05:22] LABS: PLATELET COUNT 73 10^3/uL (150-400)
[2018-05-05] MEDS: IPRATROPIUM/ALBUTEROL 3 ML DEYVIAL IH SCH ×4 (05:58→21:10)
[2018-05-05] MEDS: LEVOTHYROXINE 75 MCG TAB PO SCH (06:14)
[2018-05-05] MEDS: clonazePAM 1 MG TAB PO SCH ×2 (07:58→20:44)
[2018-05-05] MEDS: oxyCODONE IR 5 MG TAB PO PRN ×3 (07:58→21:18)
[2018-05-05] MEDS: OLANZapine 2.5 MG TAB PO SCH (07:59)
[2018-05-05] MEDS: GABAPENTIN 400 MG CAP PO SCH ×3 (08:00→20:44)
[2018-05-05] MEDS: SENNOSIDES/DOCUSATE SODIUM TAB PO SCH ×2 (08:00→20:44)
[2018-05-05] MEDS: ERTAPENEM 1 GM in NS 100 ML IV SCH (08:59)
--- NOTE | 2018-05-05 10:52 | HOSPPROG ---
Hospitalist Progress Note Assessment/Plan: Septic Shock, Resolved - presented with neutropenia, elevated Cr, hypotension in setting of PNA (?post-obstructive), now off pressors - de-escalate to po augmentin x10 more days per pulm recs, discussed with Dr. Ramos RML Pneumonia - suspect post-obstructive in setting of metastatic cancer and obstructing right hilar mass. Bronch yesterday, see Dr. Ramos's note, not much secretions distal to obstruction, no orgs on gram stain - atbx as above - cont RT support ARF - Cr normalized s/p IVF. Likely prerenal etiology in setting of hypotension , dehydration - Continue to monitor - avoid nephrotoxic agents Pancytopenia - likely 2/2 recent chemotherapy. ANC 700 on admission, s/p G-CSF on 04/21/2017, per oncology no benefit to repeat at this time. 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 Discussed with Dr. Ramos. Outpt palliative planned. Subjective: Pt feels much better. Denies CP, SOB or cough. No fevers. No pain. Taking po. Ambulating in halls. Objective: Vital Signs Temp Pulse Resp BP Pulse Ox 36.7 C 80 23 H 113/76 95 05/04/18 16:00 05/05/18 08:00 05/05/18 08:00 05/05/18 08:00 05/05/18 08:00 Microbiology 05/02/18 15:45 - Final Sputum, Expectorated Laboratory Results 05/05/18 05:10 05/04/18 04:30 05/04/18 05/05/18 05/06/18 05:59 05:59 05:59 Intake Total 4067 1226 Output Total 1500 1200 350 Balance 2567 26 -350 - Physical Exam Constitutional: no apparent distress Eyes: other (right sided facial concavity 2/2 cancer) Ears, Nose, Mouth, Throat: moist mucous membranes Cardiovascular: regular rate and rhythym Respiratory: no respiratory distress, clear to auscultation Gastrointestinal: normoactive bowel sounds, soft, non-tender abdomen Skin: warm Musculoskeletal: full muscle strength Neurologic: AAOx3 Psychiatric: interacting appropriately ICD10 Worksheet Patient Problems: Problems Problem Status Onset Adenoid cystic carcinoma Acute Anemia Acute Hypoxia Acute Neutropenic fever Acute Pneumonia Acute Sepsis Acute Cough Acute Fever Acute Hypoxemia Acute Neutropenia Acute
[2018-05-05] MEDS: ENOXAPARIN 40 MG/0.4 ML SYR SC SCH (11:23)
[2018-05-05] MEDS ORDERED: IOHEXOL 300 mgI/ML (OMNIPAQUE) 150 ML BTL IV ONE (13:43)
--- NOTE | 2018-05-05 14:25 | PDINTPN ---
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 On ertapenem. Possible aspiration pneumonia , with possible postobstructive process, at least partial. However, on bronchoscopy yesterday he did not have significant secretions and I could get through his obstruction at the level of the right mainstem. Cultures negative so far. Clinically improved. Sepsis: Resolved. Neutropenic fever. WBC 3.9 today, higher. 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 Getting palliative chemotherapy, last 04/21. For repeat staging with abdominal pelvic CT. Pulmonary metastases (stable) with partial obstruction of the right lower lobe/ middle lobe from compression of the R main/bronchus intermedius. Status post bronchoscopy yesterday. See report. Pancytopenia. Status post 1 unit of blood. Hematocrit 23.6, stable. Platelets 73,000: better Prophylaxis: SCDs, will start prophylactic enoxaparin as platelets have improved Re GI: eating. Cough: Secondary to his pneumonia and also to significant bronchial compression on the right from malignant adenopathy...better, but some cough does persist. Acute renal failure/ Volume depletion: Secondary to sepsis. Resolved. Plan: Continue present care in ICU on step-down. Possible discharge to home tomorrow.. Can change to twice daily Augmentin. Would continue this for 10 days after discharge. Continue bronchodilator therapy and antitussives. Discussed with Oncology. 30 min of critical care time spent directly with the patient. Discussed with the patient, nursing, hospitalist, Oncology, and the ICU multi disciplinary team. Subjective: Doing okay. Increased cough seen after bronchoscopy is better. Patient more comfortable. Denies significant pain. Objective: Vital Signs Temp Pulse Resp BP Pulse Ox 37 C 78 19 100/54 L 97 05/05/18 11:45 05/05/18 11:45 05/05/18 11:45 05/05/18 11:45 05/05/18 11:45 Microbiology 05/02/18 15:45 - Final Sputum, Expectorated Laboratory Results 05/05/18 05:10 05/04/18 04:30 05/04/18 05/05/18 05/06/18 05:59 05:59 05:59 Intake Total 4067 1226 Output Total 1500 1200 750 Balance 2567 26 -750 Physical Exam - Physical Exam General Appearance: alert, no apparent distress, thin EENT: PERRL/EOMI, other (On room air), No normal ENT inspection (Unchanged) Neck: No normal inspection Respiratory: decreased breath sounds (Decreased breath sounds and air movement bilaterally), rales (Few rales posteriorly on right), wheezing (Fixed wheeze heard on the right side), No rhonchi Cardiac/Chest: regular rate, rhythm Abdomen: normal bowel sounds, non-tender, soft Skin: warm/dry, pallor Extremities: pedal edema (Trace) Neuro/Psych: no motor/sensory deficits (Moves all extremities equally), No cognition abnormalities ICD10 Worksheet Patient Problems: Problems Problem Status Onset Fever Acute Neutropenia Acute Hypoxemia Acute Anemia Acute Cough Acute Neutropenic fever Acute Pneumonia Acute Hypoxia Acute Adenoid cystic carcinoma Acute Sepsis Acute
[2018-05-05] MEDS: BENZONATATE 100 MG CAP PO PRN (20:44)
[2018-05-05] MEDS: SERTRALINE HCL 50 MG TAB PO SCH (20:44)
[2018-05-06] MEDS: guaiFENesin/CODEINE PHOS 10 ML UDCUP PO PRN (01:27)
[2018-05-06] MEDS: IPRATROPIUM/ALBUTEROL 3 ML DEYVIAL IH SCH ×2 (05:58→09:53)
[2018-05-06] MEDS: LEVOTHYROXINE 75 MCG TAB PO SCH (06:35)
[2018-05-06 08:47] VITALS: BP 120/73
[2018-05-06] MEDS: GABAPENTIN 400 MG CAP PO SCH (08:53)
[2018-05-06] MEDS: clonazePAM 1 MG TAB PO SCH (08:53)
[2018-05-06] MEDS: OLANZapine 2.5 MG TAB PO SCH (08:53)
[2018-05-06] MEDS: GUAIFENESIN/DM 10 ML UDCUP PO PRN (08:54)
[2018-05-06] MEDS: ENOXAPARIN 40 MG/0.4 ML SYR SC SCH (08:54)
[2018-05-06] MEDS: BENZONATATE 100 MG CAP PO PRN (08:54)
[2018-05-06] MEDS ORDERED: AMOXICILLIN/CLAVULANATE POT 875/125 MG TAB PO SCH (09:00)
--- NOTE | 2018-05-06 09:31 | PDHOMEO2F ---
Home Oxygen Face to Face Home Orders: I certify that a physician or a nurse practitioner or physician's assistant fitness manager has had a [id number] encounter with this patient on the date of this order due to the diagnosis listed, which relates to the primary reason the patient requires home oxygen. Alternative treatments have been tried, or considered, and deemed ineffective. It is anticipated that supplemental oxygen will result in improvement with treatment. Home oxygen qualifying diagnosis: cancer with lung mets, pneumonia SpO2 on room air (%): 87 Frequency of home oxygen needed: continuous Home oxygen liters per minute: 2 Home oxygen delivery device: nasal cannula Concentrator: Yes E-tanks for mobility and back up: Yes If ordering portable O2, is the patient mobile in the home?: Yes I certify that, based on these findings, the home oxygen is medically necessary for this patient for the following length of time. Length of time home oxygen needed: 99 years
--- NOTE | 2018-05-06 11:04 | ASMTLACE ---
LACE Length of stay for Answers: 4-6 days current admission Acuity / Level of Answers: Yes Care: Did the patient have an inpatient admission? Comorbidities - select Answers: Any tumor (including all that apply lymphoma or leukemia) Other Notes: Adenoid cystic carcinom a w/ mets to lung, liver, spine, HTN , h yperlipidemia, hypothyr oid # of Emergency department Answers: 3-4 visits in the last 6 months Score: 13 Date Signed: 05/06/2018 11:04 AM Electronically Signed By:Harika Alvarez LCSW
--- NOTE | 2018-05-06 11:11 | ASMTDCNOTE ---
Case Management Discharge Discharge Order Complete? Answers: Yes Patient to Obtain Answers: Independently Medications Transportation Arranged Answers: Family/Friends Faxed Final Orders Answers: Yes Notes: [facility] Family Notified Answers: Yes Notes: , Sarah Discharge Comments Notes: Patient is discharging to home today with outpatient [facility] Palliative support. Discharge summaries Allscripted to [facility] with note patient is discharging today. Patient's will transport him home. No further needs. Date Signed: 05/06/2018 11:10 AM Electronically Signed By:Harika Alvarez LCSW
[2018-05-06] MEDS: SENNOSIDES/DOCUSATE SODIUM TAB PO SCH (11:31)
--- NOTE | 2018-05-06 19:12 | GDS ---
[f rep st] DISCHARGE SUMMARY DISCHARGE DIAGNOSES: 1. Septic shock secondary to pneumonia. 2. Right middle lobe pneumonia, likely postobstructive. 3. 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 4. Acute kidney injury, resolved. 5. Pancytopenia, secondary to chemotherapy. CONSULTANTS: 1. Dr. Elissa Menendez, Oncology. 2. Dr. Brian Martinez, Pulmonology. HISTORY OF DETAILS: See the History and Physical dated May 01, 2018. In brief, the patient is a 52-year-old male with a history of metastatic adenoid cystic carcinoma who presented to the emergenc y department with cough and fever. He went on to develop septic shock with hypotension. He was admi tted to the ICU for further management. HOSPITAL COURSE: The patient was admitted to the intensive care unit. He received appropriate sepsi s protocol with 30 cc/kilos fluid bolus. He was started on vancomycin and cefepime after blood cultu res were drawn. His chest x-ray and CT were concerning for postobstructive pneumonia, given the cons olidation distal to an obstructing right hilar mass. His antibiotics were changed to Ertapenem. He underwent bronchoscopy on May 04, 2018, and Dr. Len Ramos was able to traverse past the obstru cting hilar mass region to access the area of his pneumonia; however, there were no significant secre tions in that area. He did also undergo abdomen and pelvis CT for staging purposes, which revealed g rossly stable osseous, hepatic, pulmonary, and renal metastases. He was transitioned to oral Augment in. He remained afebrile. His white blood cell count was initially quite low with neutropenia; costello yael, this improved to 4.2 on the day of discharge. His platelets have also risen from 36,000 to 86,0 00. His hemoglobin remained low but stable at 7.7. On the day of discharge, his blood pressure was 120/73, heart rate 82, respiratory rate 14. He is sa turating 88% on room air. He is discharged on home oxygen. DISPOSITION: Patient is discharged home with Home Health Palliative Services through [facility] as well as home oxygen. FOLLOWUP: Dr. Efren Buck, Oncology. DISCHARGE MEDICATIONS: Please see [facility] completed outpatient medication list. New medications on discharge include Augmentin 825 mg p.o. twice daily for 10 more days, Tessalon Perles 100 mg p.o. q. 6 hours p.r.n. #60, no refills. Magali BELL. /[id number]/MODL
--- NOTE | 2018-05-08 08:37 | PDPCPN ---
Palliative Care Progress Note Assessment/Plan: Assessment: [facility] [address] [place] [id number] (O) [phone](F) PALLIATIVE CARE NOTE NAME: Yariel Mcdonald : 63 Date: 05/05/2018 VISIT TYPE: Initial LOCATION: Critical access hospital LEVEL OF CARE: Hospice eligible DIAGNOSES: 1. Metastatic adenoid cystic carcinoma 2. Postobstructive pneumonia 3. Sepsis CC: Postobstructive pneumonia/cough HPI: Mister Mcdonald is a 52-year-old male with a long-standing history of metastatic adenoid cystic carcinoma. He has had multiple facial surgeries. He was found to have widely metastatic disease recently and has been receiving chemotherapy. Of note he was admitted recently for neutropenic fever. He has been admitted to the hospital for increasing cough and was found to have a postobstructive pneumonia and sepsis. He was initially admitted to the ICU for treatment of the sepsis. His cough has now significantly improved. He does complain of pain which is primarily from postsurgical. He is currently on gabapentin which he states has helped the pain. He occasionally needs a when necessary opioid. PMH: 1. Metastatic adenoid cystic carcinoma ALLERGIES: No known drug allergies FAMILY HISTORY: Noncontributory SOCIAL HISTORY: Lives locally with his PATIENT GOALS OF CARE: 1. Return home 2. Spend time with family ACTIVE SYMPTOMS/ASSESSMENTS/RECOMMENDATIONS: 1. Metastatic adenoid cystic carcinoma C 08.0: Widely metastatic disease involving lung and liver bone and kidneys. Receiving chemotherapy with progressive disease in the lung. 2. Pneumonia J18.9: Postobstructive pneumonia secondary to a large mass in the right mainstem bronchus. Currently being treated with antibiotics. 3. Pain G 89.3: Primarily in the surgical sites. Currently utilizing gabapentin and an occasional when necessary opioid. We did discuss that we could increase his gabapentin as needed. MODIFIED [place] SYMPTOM ASSESSMENT SCALE: 0-none; 1-3 mild; 4-6 moderate; 7-10 severe Unable to Respond: No [ ] Delirium: 0-none Depression: 0-none Anxiety: 0none Tiredness (fatigue): 3 Drowsiness (sleepiness): 0-none Pain: 1 Nausea: 0-none Anorexia: 0-none Shortness of Breath: 0-none Secretions: 0-none Constipation: 0-none Symptom and side effect management: (acceptable to patient and family) RISK FACTORS FOR RE-HOSPITALIZATION: o CAREGIVER ANXIETY o >2 HOSPITALIZATIONS IN PAST 12 MONTHS o DISEASE EDUCATION DEFICIT REVIEW OF SYSTEMS: CONSTITUTIONAL: No weight loss, fever, chills. Complained of fatigue HEENT: Eyes: No visual loss, blurred vision, double vision or yellow sclerae. Ears, Nose, Throat: No hearing loss, sneezing, congestion, runny nose or sore throat. SKIN: No rash or itching. CARDIOVASCULAR: No chest pain, chest pressure or chest discomfort. No palpitations or edema. RESPIRATORY: No shortness of breath. Complaint of intermittent cough GASTROINTESTINAL: No anorexia, nausea, vomiting or diarrhea. No abdominal pain or blood. GENITOURINARY: No Burning on urination. NEUROLOGICAL: No headache, dizziness, syncope, paralysis, ataxia, numbness or tingling in the extremities. No change in bowel or bladder control. MUSCULOSKELETAL: No muscle, back pain, joint pain or stiffness. HEMATOLOGIC: No anemia, bleeding or bruising. LYMPHATICS: No enlarged nodes. No history of splenectomy. PSYCHIATRIC: No history of depression or anxiety. ENDOCRINOLOGIC: No reports of sweating, cold or heat intolerance. No polyuria or polydipsia. ALLERGIES: No history of asthma, hives, eczema or rhinitis. OBJECTIVE FINDINGS Palliative Performance Score: 70 FAST: Not applicable NYHA: n/a Vital Signs: Wt: MAC: Neuro: A&O to person, place, time and event; neuropathic pain in the right facial region HEENT: Normocephalic; atraumatic RESP: Regular, deep, symmetrical. No cough or wheezing CV: no LE edema GI: soft, round : no dysuria or hematuria MSK: Well nourished. Ambulatory SKIN: intact LAB Data: N/A Disposition: Inpatient ADVANCE CARE PLANNING DISCUSSION Not discussed at this visit PLAN: 1. 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 Palliative Supportive Service referrals for SW will be made following discharge from the inpatient setting Thank you for the opportunity to participate in the care of this patient. TIME SPENT: [id number] 70 min >50% of the time spent counseling, educating and coordinating the above topics. Miki Miles [facility] Plan: 05/08/18 08:37 Objective: Vital Signs Temp Pulse Resp BP Pulse Ox 37.4 C 82 14 120/73 88 L 05/06/18 08:00 05/06/18 08:00 05/06/18 08:00 05/06/18 08:00 05/06/18 08:00 Microbiology 05/02/18 15:45 - Final Sputum, Expectorated Sputum Culture - Final Laboratory Results 05/06/18 06:40 05/04/18 04:30 05/07/18 05/08/18 05/09/18 05:59 05:59 05:59 Intake Total 240 Balance 240 ICD10 Worksheet Patient Problems: Problems Problem Status Onset Adenoid cystic carcinoma Acute Anemia Acute Cough Acute Fever Acute Hypoxemia Acute Hypoxia Acute Neutropenia Acute Neutropenic fever Acute Pneumonia Acute Sepsis Acute
--- NOTE | 2018-05-09 13:32 | ASDISCHSUM ---
Discharge Information Plan Status:Outpatient Palliative Care Medically Cleared to Leave:05/05/2018 Discharge Date:05/06/2018 11:44 AM CM D/C Disposition:Home, Routine, Self-Care ADT D/C Disposition:Home, Routine, Self-Care Projected Discharge Date:05/04/2018 11:00 AM Transportation at D/C:Family Discharge Delay Reason: Follow-Up Date:05/04/2018 11:00 AM Discharge Slot:1 - 8:01 am - 12:00 noon Final Diagnosis:Adenoid cystic carcinoma Placement Information Referral Type:Palliative Care Referral ID:[id number] Provider Name:[facility] Address 1:[address] Phone Number: Address 2: Fax Number: City:[place] Selection Factors: State:[place] Patient Contact Information Contact Name:KELVIN Relationship: Address:[address] City:[place] Alternate Phone: [facility]/Zip Code:[place] [address] Email: Financial Information Financial Class:BCOP Primary Plan Desc:BC OUT OF STATE [facility] Primary Plan Number:[id number] Secondary Plan Desc: Secondary Plan Number: Assessment Information LACE LACE Length of stay for Answers: 4-6 days current admission Acuity / Level of Answers: Yes Care: Did the patient have an inpatient admission? 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 Brady. Pt admitted for nausea, vomiting, fever, shortness of breath, neutropenia. 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 Pt is currently undergoing chemotherapy and has had 7 recent facial surgeries secondary to cancer. Pt is and lives with his . He is a DNR/DNI. Discharge needs remain unclear at this time. Anticipate pt will likely discharge home independently with family support when stable. CM will continue to follow for any potential needs. Discharge Plan: To be determined, likely independent Date Signed: 05/01/2018 06:37 PM Electronically Signed By:Nkechi Cameron RN [facility] CM Progress Note CM Note CM Note Notes: Pt discussed in rounds today. Palliative consult was requested. Palliative care team spoke with [facility] and they feel pt would be appropriate for palliative at this time. CM notified MD to put in palliative order. PT rec: Home with family support OT rec: Home CM to follow. Plan: Independent with Palliative Care Date Signed: 05/02/2018 03:02 PM Electronically Signed By:FREDDY Mejia [facility] CM Progress Note CM Note CM Note Notes: Palliative Care met with pt to discuss outpatient options. Pt was agreeable to meet with [facility] tomorrow () at 3pm. CM submit referral to [facility]. Pt is DNR/DNI but there is not any ppwk in the chart. Pt reports his will bring it in. Plan:home with [facility] Pall[facility] Date Signed: 05/03/2018 02:40 PM Electronically Signed By:FREDDY Mejia Case Management Discharge Plan Note Case Management Discharge Discharge Order Complete? Answers: Yes Patient to Obtain Answers: Independently Medications Transportation Arranged Answers: Family/Friends Faxed Final Orders Answers: Yes Notes: [facility] Palliative Family Notified Answers: Yes Notes: , Sarah Discharge Comments Notes: Patient is discharging to home today with outpatient [facility] Palliative support. Discharge summaries Allscripted to [facility] with note patient is discharging today. Patient's will transport him home. No further needs. Date Signed: 05/06/2018 11:10 AM Electronically Signed By:Harika Alvarez LCSW Intervention Information
== END 2018-05-06 11:44 | disposition home or self-care (01) | DRG 871 ==
LOC: EDUNIT# → F2N 08:30
PROVIDERS: ADMIT Family Medicine; ATTEND Family Medicine
PROC: 05HN03Z Insertion of Infusion Device into Left Internal Jugular Vein, Open Approach (ICD-10-PCS; 2018-05-01)
PROC: 30233N1 Transfusion of Nonautologous Red Blood Cells into Peripheral Vein, Percutaneous Approach (ICD-10-PCS; 2018-05-01)
PROC: 0B968ZX Drainage of Right Lower Lobe Bronchus, Via Natural or Artificial Opening Endoscopic, Diagnostic (ICD-10-PCS; principal; 2018-05-04)
DX: A41.9 Sepsis, unspecified organism (principal); R65.21 Severe sepsis with septic shock; J18.8 Other pneumonia, unspecified organism; N17.9 Acute kidney failure, unspecified; D61.810 Antineoplastic chemotherapy induced pancytopenia; D70.1 Agranulocytosis secondary to cancer chemotherapy; D63.8 Anemia in other chronic diseases classified elsewhere; C78.00 Secondary malignant neoplasm of unspecified lung; C78.7 Secondary malignant neoplasm of liver and intrahepatic bile duct; C79.51 Secondary malignant neoplasm of bone; C79.00 Secondary malignant neoplasm of unspecified kidney and renal pelvis; E87.1 Hypo-osmolality and hyponatremia; E03.9 Hypothyroidism, unspecified; I10 Essential (primary) hypertension; E78.5 Hyperlipidemia, unspecified; Z92.3 Personal history of irradiation; Z66 Do not resuscitate; Z85.89 Personal history of malignant neoplasm of other organs and systems
CPT/HCPCS: 96365; 97116-GP; 97161-GP; 97167-GO; 97530-GO; 97530-GP; 97535-GO; J0171; J0692; J1200; J1335; J1650; J2250; J2405; J3010; J3370; J7613; P9016; P9040; Q9967